=== PATIENT | female | born 1955 | race Caucasian/White ===

== ENCOUNTER 2016-08-13 04:34 | Outpatient (CLI) | payer MEDICAID ==
[~2016-08-13] VITALS: Ht 175.3 cm; Wt 110.9 kg
--- NOTE | ~2016-08-13 | HEMODYNAMI ---
PATIENT:NISHA SABA MEDICAL RECORD: [id number] : 51 [id number] ADMISSION DATE: 08/13/16 Generatedon:08/13/201610:00 Patient name: NISHA SABA Patient #: [id number] : 1955 Date of study: 08/13/2016 Page: Of Hemodynamic Procedure Report Patient Data Patient Demographics Procedure consent was obtained First Name: NISHA Gender: Female Last Name: WANDY : 1955 Middle Initial: GIULIANO Age: 60 year(s) Patient #: [id number] Race: SSN: [id number] Additional ID: [id number] Contact details Address: [address] [place] [address] State: [place] City: [place] Zip code: [address] Past Medical History Allergies: No known allergies Admission Admission Data Admission Date: 08/13/2016 Admission Time: 4:34 Arrival Date: 08/13/2016 Arrival Time: 0:00 Admit Source: Other Insurance Payor: Medicaid Room #: D.2126 Height (in.): 68 BSA: 2.21 (m2) Height (cm.): 172.72 BMI: 36.49 (kg/m2) Weight (lbs.): 240 Weight (kg.): 108.86 Lab Results Lab Result Date: 08/13/2016 Lab Result Time: 0:00 Biochemistry Name Units Result Min Max BUN mg/dl 23 --(----)-* 7 18 Creatinine mg/dl 0.9 --(-*--)-- 0.6 1.3 CBC Name Units Result Min Max Hemoglobin g/dl 13.6 --(*---)-- 13.5 17.5 Procedure Procedure Types Cath Procedure Diagnostic Procedure LHC Coronaries only PCI Procedure Coronary Stent Initial Procedure Description Procedure Date Procedure Date: 08/13/2016 Procedure Start Time: 9:30 Procedure End Time: 9:53 Procedure Staff Name Function Jeff Huynh MD Performing Physician Angela Howell RT Scrub Radha Ortiz RN Nurse Vickie Song RT Monitor Real Chan RN Resident Services Coordinator Procedure Data Cath Procedure Fluoroscopy Diagnostic fluoroscopy Total fluoroscopy Time: 5.4 time: 5.4 min min Diagnostic fluoroscopy Total fluoroscopy dose: dose: 469.11 mGy 469.11 mGy Contrast Material Contrast Material Type Amount (ml) Isovue 370 111 Entry Location Entry Primary Successful Side Size Upsize Upsize Entry Closure Succes sful Closure Location (Fr) 1 (Fr) 2 (Fr) Remarks Device Remarks Femoral Right 5 Fr 6 Fr Exoseal artery Short Estimated blood loss: 5 ml Diagnostic catheters Device Type Used For End Catheter Placement Cordis 5Fr JL 4.0 Left Coronary Catheter (MP) Angiography Cordis 5Fr 3DRC Catheter Right Coronary (MP) Angiography Procedure Complications No complications Procedure Medications Medication Administration Route Dosage Oxygen NC 2 l/min Lidocaine 2% added to field 20 Heparin Flush Bag added to field 2 bags (1000units/500ml NS) 0.9% NaCl I.V. 100 ml/hr Versed I.V. 1 mg Fentanyl I.V. 50 mcg Versed I.V. 1 mg Fentanyl I.V. 50 mcg Heparin Bolus I.V. 4000 units Integrilin (Bolus 10.2 ml 2mg/ml) Fentanyl I.V. 50 mcg Plavix P.O. 600 mg Hemodynamics Rest BSA: 2.21 (m2) HGB: 13.6 (g/dl) O2 Consumption: Estimated: 211.33 (ml/min) O2 Co nsumption indexed: Estimated:95.62 (ml/min/m) Heart Rate: 74 (bpm) Snapshots Pre Cath Intra NCS Post Cath Vital Signs Time Heart Resp SPO2 NIBP (mmHg) Rhythm Pain Sedation Rate (ipm) (%) Status Level (bpm) 9:30:00 78 15 95 127/81(108) NSR 0 (11) 10(A) , No pain 9:35:27 80 15 95 141/81(104) NSR 0 (11) 9(A) , No pain 9:40:59 85 16 96 136/80(113) NSR 0 (11) 9(A) , No pain 9:45:25 83 18 97 157/88(129) NSR 0 (11) 9(A) , No pain 9:50:00 83 17 97 172/84(134) NSR 0 (11) 9(A) , No pain 9:55:21 86 17 96 149/89(126) NSR 0 (11) 10(A) , No pain Medications Time Medication Route Dose Verified Delivered Reason Notes Effectiveness by by 9:15:27 Oxygen NC 2 Jeff Buffie used for l/min [facility] Alphonse Ortiz RN procedure 9:21:32 Lidocaine 2% added 20ml Jeff Jeff for local to vial [facility] anesthetic field MD SUGGS 9:21:39 Heparin Flush added 2 Jeff Jeff used for Bag to bags [facility] procedure (1000units/500ml field MD SUGGS NS) 9:21:48 0.9% NaCl I.V. 100 Jeff Buffie Per physician ml/hr [facility] Alphonse Ortiz RN, MD 9:27:49 Versed I.V. 1 mg Jeff Garcia for sedation [facility] Alph[facility] Ortiz RN, MD 9:27:57 Fentanyl I.V. 50 Jeff Buffie for sedation mcg [facility] Alphonse Ortiz RN, MD 9:32:42 Versed I.V. 1 mg Jeff Castanonie for sedation [facility] Alphonse Ortiz RN, MD 9:32:46 Fentanyl I.V. 50 Jeff Castanonie for sedation mcg [facility] Alphonse Ortiz RN, MD 9:40:04 Heparin Bolus I.V. 4000 Jeff Castanonie for verifie d units [facility] Alphonse Ortiz RN anticoagulation with dr MD sorenson 9:43:01 Integrilin 10.2 Jeff Garcia for (Bolus 2mg/ml) ml [facility] Alphonse Ortiz RN antiplatelet therapy 9:47:54 Fentanyl I.V. 50 Jeff Buffie for sedation mcg [facility] Alphonse Ortiz RN, MD 9:54:04 Plavix P.O. 600 Jeff Castanonie for mg [facility] Alphonse Ortiz RN antiplatelet MD therapy Procedure Log Time Note 8:43:11 Admit Source: Other 8:43:15 Arrival Date: 08/13/2016 12:00:00 AM 8:43:33 Diagnostic Cath Status : Elective 8:52:25 Real Chan RN sent for patient. Start room use. 8:52:31 Time tracking: Regular hours 8:52:36 Plan of Care:Hemodynamics will remain stable., Cardiac rhythm will remain stable., Comfort level will be maintained., Respiratory function will remain adequate., Patient/ family verbilizes understanding of procedure., Procedure tolerated without complication., Recovers from procedure without complications.. 9:04:52 Warm blankets applied, and dwayne hugger turned on for patient comfort. 9:04:55 Correct patient and procedure confirmed by team. 9:05:08 Signed procedure consent form obtained from patient. 9:05:18 H&P Date Dictated: 08/13/2016 H&P Addendum completed by physician on day of procedure. (MUST COMPLETE FOR ALL OUTPATIENTS). 9:05:22 Pre-procedure instructions explained to patient. 9:05:25 Family in waiting room. 9:05:27 Patient NPO since Midnight. 9:05:37 Patient allergic to No known allergies 9:05:53 Patient allergic to No known allergies 9:06:00 Is the patient allergic to Iodine/contrast media? No. 9:06:08 Is patient on blood thinner?No 9:06:10 Patient diabetic? Yes. 9:06:11 If diabetic: On Metformin? Yes 9:06:36 If on Metformin: Last Dose? 08/12/2016 9:06:42 Snore? Yes 9:06:44 Sleep apnea? No 9:06:45 Deviated septum? No 9:06:47 Opens mouth fully? Yes 9:06:49 Sticks out tongue? Yes 9:06:58 Dentures? Yes in tight 9:07:08 Patient pain scale 0/10 ?. 9:07:20 IV patent on arrival in right forearm with 0.9% NaCl at KVO. 9:07:30 Lab results completed and on chart. 9:07:35 Right groin area was prepped with chlora-prep and draped in sterile fashion 9:07:36 Alarms reviewed by R. N. 9:07:38 Sharps counted by scrub and verified by R.N. 9:07:47 Use device set Femoral Dx 9:07:49 Acist Syringe opened to sterile field. 9:07:50 Bag Decanter opened to sterile field. 9:07:50 Cardinal Cath Pack opened to sterile field. 9:07:51 Terumo 5Fr [place] Sheath opened to sterile field. 9:07:53 St Adam 260cm J .035 wire opened to sterile field. 9:07:54 Acist Hand Control opened to sterile field. 9:07:55 Acist Manifold opened to sterile field. 9:07:55 Cordis Infinity 5Fr Multipack catheter opened to sterile field. 9::57 Tegaderm 4 x 4 opened to sterile field. 9:15:27 Oxygen 2 l/min NC was given by Radha Oritz RN; used for procedure; 9:18:32 Patient Height : 172.72 cm 9:18:38 Patient Weight : 108.86 kg 9:18:38 Insurance Payor : Medicaid 9:19:35 Lab Result : BUN 23 mg/dl 9::35 Lab Result : Hemoglobin 13.6 g/dl 9::35 Lab Result : Creatinine 0.9 mg/dl 9::32 Lidocaine 2% 20ml vial added to field was given by Jeff Huynh MD; for local anesthetic; 9:21:39 Heparin Flush Bag (1000units/500ml NS) 2 bags added to field was given by Jeff Huynh MD; used for procedure; 9::48 0.9% NaCl 100 ml/hr I.V. was given by Radha Ortiz RN; Per physician; 9:24:03 Baseline sample Acquired. 9:26:07 Baseline sample Acquired. 9:26:22 Baseline sample Acquired. 9::56 Baseline sample Acquired. 9:27:12 Baseline sample Acquired. 9:27:23 Physician arrived 9:27:24 --------ALL STOP TIME OUT------ 9:27:24 Final Timeout: patient, procedure, and site verified with staff and physician. All members of the team are in agreement. 9:27:26 Right groin site verified by team. 9:27:31 Physical assessment completed. ASA score P 2 - A patient with mild systemic disease as per Jeff Huynh MD. 9:27:34 Sedation plan: IV Moderate Sedation Versed, Fentanyl 9:27:49 Versed 1 mg I.V. was given by Radha Ortiz RN; for sedation; 9::57 Fentanyl 50 mcg I.V. was given by Radha Ortiz RN; for sedation; 9:29:03 Procedure started. 9:29:03 Full Disclosure recording started 9:30:21 Local anesthetic to right femoral artery with Lidocaine 2% by Jeff Huynh MD.INITIAL ACCESS ONLY 9:30:30 A 5 Fr sheath was inserted into the Right Femoral artery 9:32:37 Vital chart was started 9:32:42 Versed 1 mg I.V. was given by Radha Ortiz RN; for sedation; 9:32:46 Fentanyl 50 mcg I.V. was given by Radha Ortiz RN; for sedation; 9:34:44 A Cordis 5Fr JL 4.0 Catheter (MP) was advanced over the wire and used for Left Coronary Angiography. 9:35:17 LCA angiography performed. 9:35:20 Injector settings: Ml/sec: 3, Volume: 6, 9:36:26 Catheter removed. 9:36:31 A Cordis 5Fr 3DRC Catheter (MP) was advanced over the wire and used for Right Coronary Angiography. 9:37:02 Red Balloon Security BasixCompak Inflation Kit opened to sterile field. 9:37:03 [place] Whisper J 300cm 0.014 guide wire opened to sterile field. 9:37:04 Terumo 6Fr [place] Sheath opened to sterile field. 9:37:33 RCA angiography performed. 9:37:37 Injector settings: Ml/sec: 3, Volume: 6, 9:38:14 Cordis 6FR XBLAD 3.5 guide catheter opened to sterile field. 9:38:34 Catheter removed. 9:39:37 Sheath upsized to a 6 Fr Short. 9:40:04 Heparin Bolus 4000 units I.V. was given by Radha Ortiz RN; for anticoagulation; verified with dr sorenson 9:41:31 6 Fr xblad 3.5 guide catheter was inserted over the wire 9:42:51 whisper wire advanced. 9:42:52 Wire advanced across lesion. 9:43:01 Integrilin (Bolus 2mg/ml) 10.2 ml was given by Radha Ortiz RN; for antiplatelet therapy; 9:43:35 Wire removed. 9:43:49 [place] Sci Choice PT Extra Support J 300cm .014 gu opened to sterile field. 9:43:59 choice pt wire advanced. 9:45:03 Inflation number: 1 A [place] Sci Pickett 3.0 X 15 balloon was prepped and advanced across the Prox CX, then inflated to 12 JIMI for 0:30 (min:sec). 9:46:12 Inflation number: 2 The [place] Crowdx Pickett 3.0 X 15 balloon was reinflated across the Prox CX, to 12 JIMI for 0:30 (min:sec). 9:46:29 Balloon removed over the wire. 9:47:54 Fentanyl 50 mcg I.V. was given by Radha Ortiz RN; for sedation; 9:50:06 Inflation Number: 3 A InGameNowtronic Integrity 3.0 X 15 stent was prepped and advanced across the Prox CX. The stent was deployed at 14 JIMI for 0:30 (min:sec). 9:50:16 Stent catheter was removed intact over wire. 9:50:17 Wire removed. 9:50:18 Guide catheter removed. 9:51:20 Cordis 6Fr Exoseal opened to sterile field. 9:51:32 Sheath removed intact; hemostasis achieved with Exoseal to the Right Femoral artery. 9:51:35 Procedure ended.(Physican Out) 9:51:44 Fluoroscopy time 05.40 minutes. 9:52:01 Flurop Dose total: 469.11 9:52:01 Fluoroscopy dose: 469.11 mGy 9:52:04 Contrast amount:Isovue 370 111ml. 9:52:06 Sharps counted by scrub and verified by R.N. 9:52:07 Insertion/operative site no bleeding no hematoma. 9:52:10 Post-op/insertion site Right Femoral artery dressed using a 4 x 4 and Tegaderm. 9:52:13 Post right femoral artery:stable 9:52:14 Post Procedure Pulses reassessed and unchanged 9:52:18 Post procedure rhythm: unchanged. 9:52:21 Estimated blood loss: 5 ml 9:52:22 Post procedure instruction explained to patient.Patient verbalizes understanding. 9:52:23 Patient needs reinforcement of post procedure teaching. 9:52:39 Procedure type changed to Cath procedure, Diagnostic procedure, LHC, Coronaries only, PCI procedure, Coronary Stent Initial 9:52:56 Procedure and supply charges have been captured, reviewed, submitted and are correct. 9:53:01 Procedure Complication : No complications 9:53:14 Vital chart was stopped 9:53:17 See physician's report for complete and final results. 9:53:22 Report given to [facility]. 9:53:25 Patient transfered to [facility] with Stretcher. 9:53:27 Procedure ended. 9:53:27 Full Disclosure recording stopped 9:53:37 ACC-PCI Only Patient was given prescriptions, or instructed by Jeff Huynh MD to start/continue the following medications upon discharge: Plavix 9:53:39 End room use (Document Last) 9:54:04 Plavix 600 mg P.O. was given by Radha Ortiz RN; for antiplatelet therapy; Intervention Summary Intervention Notes Time ActionType Lesion and Equipment Action# Pressure Duration Attributes Used 9:45:03 Inflate Prox CX [place] 1 12 00:30 balloon Sci Pickett 3.0 X 15 balloon 9:46:12 Reinflate Prox CX [place] 2 12 00:30 balloon Sci Pickett 3.0 X 15 balloon 9:50:[address] stent Prox CX Medtronic 3 14 00:30 Integrity 3.0 X 15 stent Device Usage Item Name Manufacture Quantity Catalog Number Hospital Part Current Mini mal Lot# / Charge Number Stock Stock Serial# Code Acist Acist 1 02317 [id number] 146321 982890 20 Syringe Medical Systems Inc Bag Microtek 1 2002S 065506 48030 051058 5 Decanter Medical Inc. Cardinal Cardinal 1 [id number] 742162 51782 305111 5 Cath Pack Health Terumo 5Fr Terumo 1 [id number] 678758 338701 687677 [address] [place] [address] [facility] St Adam 1 932332 681680 174213 904820 30 260cm J .035 wire Acist Hand Acist 1 78311 631248 457431 395047 5 Control Medical Systems Inc Acist Acist 1 73664 421268 854028 867770 5 Manifold Medical Systems Inc Cordis Cardinal 1 [id number] 001519 59582 055729 30 Infinity Health 5Fr Multipack catheter Tegaderm 4 3M 1 1626W 024139 190622 712465 5 x 4 Cordis 5Fr Cardinal 1 581029 5 JL 4.0 Health Catheter (MP) Cordis 5Fr Cardinal 1 569425 5 3DRC Health Catheter (MP) [facility] Merit 1 QR1215 444182 217445 122199 15 BasixCompak Medical Inflation Kit [place] 1 [id number] 882485 236097 817369 5 Whisper J Vascular 300cm 0.014 guide wire Terumo 6Fr Terumo 1 [id number] 464731 834871 642876 40 [place] Sheath Cordis 6FR Cardinal 1 [id number] 398901 224291 920829 10 XBLAD 3.5 Health guide catheter [place] Sci [place] 1 [id number] 841562 176125 887796 5 [id number] Choice PT Scientific Extra Support J 300cm .014 gu [place] Sci [place] 1 [id number] 095987 038813 426087 1 [id number] Pickett Scientific 3.0 X 15 balloon Medtronic Medtronic 1 [id number] 272446 449928 873991 0 [id number] Integrity 3.0 X 15 stent Cordis 6Fr Cardinal 1 [id number] 106327 508154 629077 10 Wikia Health Signature Audit [place] Stage Time Signature Unsigned Intra-Procedure 08/13/2016 Vickie Song 10:00:04 AM RT(R) Signatures Monitor : Vickie Song RT Signature : Date : Time : [place] [id number] [place] [address]
[~2016-08-13 04:34] MED LIST: BAYER CHEWABLE81 MG PO; COREG 3.1253.125 MG PO; EFFIENT10 MG PO; FIBERCON625 MG PO; GABAPENTIN100 MG PO; GLUCOPHAGE500 MG PO; LASIX80 MG PO; POTASSIUM CHLO10 ME1 PO; SYMBICORT 16010.2 GM INH; TESSALON PERLE100 MG PO; TYLENOL W/CODEI1 TAB PO; VENTOLIN HFA18 GM INH
[2016-08-13 04:45] VITALS: BP 151/72
--- NOTE | 2016-08-13 04:45 | NUR ---
RECIEVED TO ROOM 2126 FROM [facility] VIA EMS. PT A&O, VITALS STABLE. PLACED ON TELEMETRY, 84 SR PER LOGISTICIAN. IV TO LEFT AC SL, SITE CLEAN AND DRY. PT EXPRESSED WISHES " THAT IF ANYTHING WERE TO HAPPEN TO HER, SHE DOESNT WANT ANY THING DONE, NO COMPRESSIONS OR SHOCKS" ASKED PT IF SHE WANTS TO BE A DNR, PT STATED YES. PLACED DNR SHEET ON PTS CHART AND WILL PASS ON PTS WISHES TO ON COMING NURSING STAFF.
[2016-08-13] MEDS ORDERED: TYLENOL #4 W/CO1 TAB PO (04:47)
[2016-08-13] MEDS ORDERED: KLONOPIN1 MG PO (04:52)
[2016-08-13] MEDS ORDERED: GLUCOPHAGE500 MG PO (04:52)
--- NOTE | 2016-08-13 05:05 | NUR ---
CONSENTS SIGNED AND WITNESSED FOR CATH PROCEDURE, CONSENTS PLACED ON CHART.
[2016-08-13 05:12] VITALS: Ht 175.3 cm; Wt 110.9 kg
--- NOTE | 2016-08-13 05:31 | NUR ---
CALL LIGHT IN REACH. WILL CONTINUE WITH PLAN OF CARE.
--- NOTE | 2016-08-13 07:15 | NUR ---
PT SLEEPING NO S/S DISTRESS FAMILY AT BEDSIDE. WILL CONTINUE TO MONITOR.
[2016-08-13 08:00] VITALS: BP 123/52
--- NOTE | 2016-08-13 10:17 | NUR ---
PT BACK FROM [facility] VS WNL. PT STILL SLEEPY PT FAMILY IN ROOM. GOVIND FROM [employer]WORK [employer] SAT PT UP SLIGHTLY ABOUT 20 DEGREES BECAUSE PT HAS BACK/BREATHING PROBLEMS. PT R PRIYA SITE WNL. WILL CONTINUE TO MONITOR CLOSELY.
[2016-08-13 11:01] LABS: BASOPHILS 0.1 % (0.0-2.0); EOSINOPHILS 0.5 % (0-7); HEMOGLOBIN 12.7 g/dL (12-16); IMMATURE GRANULOCYTES 0.6 % (0-5); LYMPHOCYTES 26.5 % (15-50); MCH 30.4 pg (26.0-34.0); MCHC 31.8 g/dL (31.0-37.0); MCV 95.7 fL (80.0-100.0); MEAN PLATELET VOLUME 11.6 fL (7.4-10.4); MONOCYTES 6.1 % (2-11); NEUTROPHILS 66.2 % (40-80); RBC 4.18 10x6/uL (4.00-5.40); RDW 16.7 % (11.5-14.5); WBC 11.2 10x3/uL (4.8-10.8)
[2016-08-13 11:02] LABS: PLATELET COUNT 218 10x3/uL (130-400)
[2016-08-13 11:09] LABS: CALC OSMOLALITY 284 mosm/kg (275-300); CALCIUM 9.3 mg/dL (8.5-10.1); CARBON DIOXIDE 32.5 mmol/L (21.0-32.0); CHLORIDE - SERUM 104 mmol/L (98-107); CREATININE - SERUM 0.8 mg/dL (0.6-1.3); GLUCOSE 81 mg/dL (74-106); POTASSIUM - SERUM 3.9 mmol/L (3.5-5.1); SODIUM 142 mmol/L (136-145); UREA NITROGEN 20 mg/dL (7-18); eGFR NON AFRICAN AMERICAN 77 mL/min (90-120)
[2016-08-13 12:00] VITALS: BP 109/62
[2016-08-13] MEDS ORDERED: PLAVIX75 MG PO (12:27)
[2016-08-13] MEDS ORDERED: ISOSORBIDE MONO30 M1 PO (12:27)
--- NOTE | 2016-08-13 14:17 | NUR ---
WENT OVER DC PAPERWORK WITH PT PT VERBALIZED UNDERSTANDING. DC TELE. PT SKIN TEARS VERY EASILY WHEN DC PIV PT RIPPED TAPE OFF OF AND RIPPED SKIN OFF ARM. PIV WAS REMOVED WITH CATHETER TIP INTACT. WRAPED WOUND WITH VASELINE GAUZE, 4X4, CURLEX. PT GOT DRESSED AND VOLUNTEER WHEELED PT OUT.
--- NOTE | 2016-08-16 14:09 | OP ---
PATIENT NAME: NISHA SABA MEDICAL RECORD: [id number] :51 LOCATION:D.OPS ADMISSION DATE: SURGEON: JEROME CHAVEZ MD DATE OF OPERATION: 08/13/2016 PROCEDURE: Left heart catheterization, selective coronary angiography, right femoral artery approach. CATHETERS: A 5-British sheath, 5/4 left and right Alem, 5/4 pig. The procedure was well tolerated ____ of the ostial circumflex after the procedure was finished. FINDINGS: Left ventriculography not performed. CORONARY ANATOMY: Left main: Left main is free of disease. LAD: Free of disease in the diagonal system. CIRCUMFLEX: Circumflex has an ostial stenosis of better than 90%. RIGHT CORONARY ARTERY: Has a 90% stenosis. Attempted intervention of this vessel previously by Dr. Cantu, did not ____ despite 7-British sheath, etc was not able to be crossed. IMPRESSION: Known disease of the right. PLAN: Intervention of ostial circumflex. PROCEDURE IN DETAIL: A 5-British sheath was exchanged for a 6-British sheath. An XB LAD guiding catheter provided good guide support followed by a 300 cm Whisper wire was placed across the tightly occluded ostial circumflex down this portion of vessel. Next, a 3.0 x 15 Integrity balloon was taken down this part of the circumflex and the wire was changed for a PT export wire. Next, the balloon withdrawn proximally. Predeployment up to 12 atmospheres for 45 seconds. Next, stent deployed was a 3.0 x 15 mm Integrity nondrug-eluting stent, was inflated up to 14 atmospheres. Final injection shows excellent resolution of 90% stenosis to no significant residual. OMAR flow was 3 throughout the procedure. Plavix was loaded in the lab. Integrilin and heparin were used during the case. Sheath closed with ExoSeal device. TRANSINT:[id number] Voice Confirmation ID: [id number] DOCUMENT ID: [id number] JEROME CHAVEZ MD at 1409 CC: [id number] DICTATION DATE: 08/13/16 0957 RUST PROOFER: 08/13/16 1240 DEP CLI 08/13/16 [place] [address]
== END 2016-08-13 14:21 | disposition home or self-care (01) ==
LOC: D.M2 04:34 → D.OPS 04:34 → D.M2 04:34 → UNDOADMOB 04:34 → EDSTATUS 13:45 → D.OPS 14:21
PROVIDERS: Internal Medicine Interventional Cardiology
DX: I25.119 Atherosclerotic heart disease of native coronary artery with unspecified angina pectoris (principal)

== ENCOUNTER 2016-09-12 17:41 | Inpatient (IN) | payer MEDICAID ==
[~2016-09-12] VITALS: Ht 175.3 cm; Wt 109.7 kg
--- NOTE | ~2016-09-12 | HEMODYNAMI ---
PATIENT:NISHA SABA MEDICAL RECORD: [id number] : 51 [facility]. D.[id number] ADMISSION DATE: 09/12/16 Generatedon:09/13/201613:39 Patient name: NISHA SABA Patient #: [id number] : 1955 Date of study: 09/13/2016 Page: Of Hemodynamic Procedure Report Patient Data Patient Demographics Procedure consent was obtained First Name: NISHA Gender: Female Last Name: WANDY : 1955 [facility] Initial: GIULIANO Age: 60 year(s) Patient #: [id number] Race: SSN: [id number] Additional ID: [id number] Contact details Address: [address] [place] [address] State: [place] City: [place] Zip code: [address] Past Medical History Allergies: No known allergies Admission Admission Data Admission Date: 09/12/2016 Admission Time: 20:04 Arrival Date: 09/13/2016 Arrival Time: 0:00 Admit Source: Other Room #: D.2121 Height (in.): 68 BSA: 2.21 (m2) Height (cm.): 172.72 BMI: 36.49 (kg/m2) Weight (lbs.): 240 Weight (kg.): 108.86 Lab Results Lab Result Date: 09/13/2016 Lab Result Time: 0:00 Biochemistry Name Units Result Min Max BUN mg/dl 25 --(----)-* 7 18 Creatinine mg/dl 1 --(--*-)-- 0.6 1.3 CBC Name Units Result Min Max Hemoglobin g/dl 13.4 -*(----)-- 13.5 17.5 Procedure Procedure Types Cath Procedure Diagnostic Procedure LHC LHC w/Coronaries Miscellaneous Procedures Moderate Sedation up to 15 minutes Procedure Description Procedure Date Procedure Date: 09/13/2016 Procedure Start Time: 13:24 Procedure End Time: 13:37 Procedure Staff Name Function Jeff Huynh MD Performing Physician Angela Howell RT Scrub Angela Barreto RN Nurse Ruben Del Angel RT Director Regulatory Affairs Angela Howell RT Monitor Procedure Data Cath Procedure Fluoroscopy Diagnostic fluoroscopy Total fluoroscopy Time: 1.3 time: 1.3 min min Diagnostic fluoroscopy Total fluoroscopy dose: 162 dose: 162 mGy mGy Contrast Material Contrast Material Type Amount (ml) Isovue 300 57 Entry Location Entry Primary Successful Side Size Upsize Upsize Entry Closure Succes sful Closure Location (Fr) 1 (Fr) 2 (Fr) Remarks Device Remarks Femoral Left 5 Fr Exoseal artery Estimated blood loss: 10 ml Diagnostic catheters Device Type Used For End Catheter Placement Cordis 5Fr JL 4.0 Procedure Catheter (MP) Cordis 5Fr 3DRC Catheter Procedure (MP) Cordis 5Fr Pigtail Ventriculography Catheter (MP) Procedure Complications No complications Procedure Medications Medication Administration Route Dosage Oxygen NC 2 l/min Heparin Flush Bag added to field 2 bags (1000units/500ml NS) Lidocaine 2% added to field 20 Versed I.V. 1 mg Fentanyl I.V. 50 mcg Versed I.V. 0.5 mg Fentanyl I.V. 25 mcg Hemodynamics Rest BSA: 2.21 (m2) HGB: 13.4 (g/dl) O2 Consumption: Estimated: 207.59 (ml/min) O2 Co nsumption indexed: Estimated:93.93 (ml/min/m) Heart Rate: 69 (bpm) Pressure Samples Time Site Value (mmHg) Purpose Heart Use Rate(bpm) 13:32 LV 157/17,18 Snapshot 81 13:33 AO (97) Pullback 88 13:33 LV 149/14,15 Pullback 88 Gradients Valve Time Site 1 Site Mean SEP/DFP Peak To Heart Use 2 (mmHg) (sec/min) Peak Rate (mmHg) (bpm) Aortic 13:33 LV AO 4 18 88 149/14,15 (97) Calculations Valve P-P Mean Valve Index Valve Source Name Gradient Area Flow (cm2) Aortic 4 4 Snapshots Pre Cath Intra NCS Post Cath Vital Signs Time Heart Resp SPO2 NIBP (mmHg) Rhythm Pain Sedation Rate (ipm) (%) Status Level (bpm) 13:15:36 65 19 98 150/79(126) NSR 0 (11) 10(A) , No pain 13:20:02 66 18 98 142/83(115) NSR 0 (11) 10(A) , No pain 13:25:01 79 15 98 Measuring NSR 0 (11) 9(A) , No pain 13:25:12 78 16 98 136/79(113) NSR 0 (11) 9(A) , No pain 13:29:34 84 16 98 138/86(117) NSR 0 (11) 9(A) , No pain 13:33:54 77 16 97 134/76(117) NSR 0 (11) 9(A) , No pain 13:37:12 79 18 97 140/81(111) NSR 0 (11) 9(A) , No pain Medications Time Medication Route Dose Verified Delivered Reason Notes Effec tiveness by by 13:16:37 Oxygen NC 2 Jeff Angela Per l/min [facility] Alphonse Barreto RN physician 13:16:43 Heparin Flush added 2 Jeff Jeff [facility] (1000units/500ml field MD SUGGS NS) 13:16:49 Lidocaine 2% added 20ml Jeff Jeff used for to vial Lino Helemano procedure field MD SUGGS 13:18:59 Versed I.V. 1 mg [address] Angela [address] [facility] Alphonse Barreto RN sedation 13:19:05 Fentanyl I.V. 50 Jeff Angela for mcg [facility] Alphonse Barreto RN sedation 13:21:43 Versed I.V. 0.5 Jeff Angela for mg [facility] Alphonse Barreto RN sedation 13:21:52 Fentanyl I.V. 25 Jeff Angela for mcg [facility] Alphonse Barreto RN sedation Procedure Log Time Note 12:54:32 Admit Source: Other 12:54:36 Arrival Date: 09/13/2016 12:00:00 AM 12:57:11 Patient Height : 172.72 inches 12:57:19 Patient Weight : 108.86 lbs 12:57:30 Diagnostic Cath Status : Elective 12:58:21 Ruben KANG(R) sent for patient. Start room use. 12:58:32 Time tracking: Regular hours 12:58:38 Plan of Care:Hemodynamics will remain stable., Cardiac rhythm will remain stable., Comfort level will be maintained., Respiratory function will remain adequate., Patient/ family verbilizes understanding of procedure., Procedure tolerated without complication., Recovers from procedure without complications.. 12:58:49 Patient received from Med II to CCL 3 Alert and oriented. Tansferred to table in Supine position. 12:59:05 H&P Date Dictated: 09/13/2016 Within 30 days and on chart.. 12:59:08 Pre-procedure instructions explained to patient. 12:59:11 Family in waiting room. 12:59:13 Patient NPO since Midnight. 12:59:21 Patient allergic to No known allergies 12:59:24 Is the patient allergic to Iodine/contrast media? No. 12:59:27 Was the patient premedicated? No 12:59:29 Is patient on blood thinner?Yes 12:59:34 ACC The patient was administered the following blood thiners within the last 24 hours: ACCPlavix 12:59:36 Patient diabetic? Yes. 12:59:38 If diabetic: On Metformin? Yes 12:59:42 If on Metformin: Last Dose? 09/12/2016 12:59:49 Snore? Yes 12:59:50 Sleep apnea? Yes 12:59:52 Deviated septum? No 12:59:52 Opens mouth fully? Yes 12:59:54 Sticks out tongue? Yes 13:00:00 Dentures? Yes tight 13:00:10 IV patent on arrival in left forearm with 0.9% NaCl at KVO. 13:00:19 Lab results completed and on chart. 13:00:36 Right groin area was prepped with chlora-prep and draped in sterile fashion 13:00:56 Warm blankets applied, and dwayne hugger turned on for patient comfort. 13:00:57 Correct patient and procedure confirmed by team. 13:00:59 Signed procedure consent form obtained from patient. 13:01:39 Procedure type changed to Cath procedure, Diagnostic procedure, LHC, LHC w/Coronaries, Miscellaneous Procedures, Moderate Sedation up to 15 minutes 13:14:16 Vital chart was started 13:16:37 Oxygen 2 l/min NC was given by Angela Barreto RN; Per physician; 13:16:43 Heparin Flush Bag (1000units/500ml NS) 2 bags added to field was given by Jeff Huynh MD; used for procedure; 13:16:49 Lidocaine 2% 20ml vial added to field was given by Jeff Huynh MD; used for procedure; 13:16:57 ECG and BP/O2 sat monitors applied to patient. 13:17:00 Baseline sample Acquired. 13:17:06 Full Disclosure recording started 13:18:15 Airway obstruction? Yes COPD, ASTHMA 13:18:30 Alarms reviewed by R. N. 13:18:31 Sharps counted by scrub and verified by R.N. 13:18:32 Physician paged 13:18:33 Physician arrived 13:18:33 --------ALL STOP TIME OUT------ 13:18:34 Final Timeout: patient, procedure, and site verified with staff and physician. All members of the team are in agreement. 13:18:37 Right Radial & Left Groin site verified by team. 13:18:42 Sedation plan: IV Moderate Sedation Versed, Fentanyl 13:18:54 Use device set Femoral Dx 13:18:56 Acist Syringe opened to sterile field. 13:18:56 Bag Decanter opened to sterile field. 13:18:57 Cardinal Cath Pack opened to sterile field. 13:18:57 Terumo 5Fr [place] Sheath opened to sterile field. 13:18:58 St Adam 260cm J .035 wire opened to sterile field. 13:18:59 Versed 1 mg I.V. was given by Angela Barreto RN; for sedation; 13:19:00 Acist Hand Control opened to sterile field. 13:19:00 Acist Manifold opened to sterile field. 13:19:01 Cordis Infinity 5Fr Multipack catheter opened to sterile field. 13:19:02 Tegaderm 4 x 4 opened to sterile field. 13:19:05 Fentanyl 50 mcg I.V. was given by Angela Barreto RN; for sedation; 13:20:38 Lab Result : BUN 25 mg/dl 13:20:38 Lab Result : Creatinine 1 mg/dl 13:20:38 Lab Result : Hemoglobin 13.4 g/dl 13:21:43 Versed 0.5 mg I.V. was given by Angela Barreto RN; for sedation; 13:21:52 Fentanyl 25 mcg I.V. was given by Angela Barreto RN; for sedation; 13:24:27 Procedure started. 13:24:45 Local anesthetic to left femerol artery with Lidocaine 2% by Jeff Huynh MD.INITIAL ACCESS ONLY 13:26:00 A 5 Fr sheath was inserted into the Left Femoral artery 13:26:43 Zero performed for pressure channel P1 13:27:22 A Cordis 5Fr JL 4.0 Catheter (MP) was advanced over the wire and used for Procedure. 13:29:37 LCA angiography performed. 13:30:45 Catheter removed. 13:31:22 A Cordis 5Fr 3DRC Catheter (MP) was advanced over the wire and used for Procedure. 13:31:26 Catheter removed. 13:32:04 A Cordis 5Fr Pigtail Catheter (MP) was advanced over the wire and used for Ventriculography. 13:33:25 Cordis 5Fr Exoseal opened to sterile field. 13:34:30 Sheath removed intact; hemostasis achieved with Exoseal to the Left Femoral artery. 13:34:33 Procedure ended.(Physican Out) 13:34:48 Fluoroscopy time 01.30 minutes. 13:34:55 Flurop Dose total: 162 13:34:55 Fluoroscopy dose: 162 mGy 13:35:45 Contrast amount:Isovue 300 57ml. 13:35:47 Sharps counted by scrub and verified by R.N. 13:35:58 Post left femerol artery:stable 13:36:13 Post-procedure physical assessment completed. ASA score P 2 - A patient with mild systemic disease as per Jeff Huynh MD. 13:36:16 Post procedure rhythm: unchanged. 13:36:19 Estimated blood loss: 10 ml 13:36:21 Post procedure instruction explained to patient.Patient verbalizes understanding. 13:36:30 Procedure and supply charges have been captured, reviewed, submitted and are correct. 13:36:54 Procedure Complication : No complications 13:36:57 Vital chart was stopped 13:36:58 See physician's report for complete and final results. 13:37:06 Report given to [facility]. 13:37:11 Patient transfered to [facility] with Bed. 13:37:15 Procedure ended. 13:37:15 Full Disclosure recording stopped 13:37:23 End room use (Document Last) Device Usage Item Name Manufacture Quantity Catalog Hospital Part Current Minimal Lo t# / Number Charge Number Stock Stock Serial# Code Acist Acist 1 82479 [id number] [id number] 115920 20 Syringe Medical Systems Inc Bag Microtek 1 2002S [id number] 03067 055520 5 Decanter Medical Inc. Cardinal Cardinal 1 [id number] 13035 230414 5 Cath Pack Health Terumo Terumo 1 [id number] 375262 872207 544239 [address] St Adam 1 456238 144399 379513 407616 30 260cm J .035 wire Acist Acist 1 19978 519327 173637 084076 5 Hand Medical Control Systems Inc Acist Acist 1 87745 469769 995986 603882 5 Manifold Medical Systems Inc Cordis Cardinal 1 [id number] 833598 10548 366266 30 [employer] 5Fr Multipack catheter Tegaderm 3M 1 1626W 646201 655935 825943 5 4 x 4 Cordis Cardinal 1 563010 5 5Fr JL Health 4.0 Catheter (MP) Cordis Cardinal 1 [id number] 5 5Fr [facility] Health Catheter (MP) Cordis Cardinal 1 314635 5 5Fr Health Pigtail Catheter (MP) Cordis Cardinal 1 EX500 289574 101852 062784 10 5Fr Health Exoseal Signature Audit [place] Stage Time Signature Unsigned Intra-Procedure 09/13/2016 Angela Howell 1:39:51 PM RT(R) Signatures Monitor : Angela Howell Signature : RT Date : Time : [address] [place] [address]
[~2016-09-12 17:41] MED LIST changes: +ISOSORBIDE MONO30 M1 PO; +KLONOPIN1 MG PO; +PLAVIX75 MG PO; +TYLENOL #4 W/CO1 TAB PO
[2016-09-12 20:00] VITALS: BP 118/63
--- NOTE | 2016-09-12 20:23 | NUR ---
PT ARIVED VIA STRETCHER FROM [facility]. PT NAD. DRESSING TO BILAT ARMS OOZING BLOOD. SORE TO LOWER L LEG WEEPING SEROUS FLUID. DRESSING CHAGES TO BILAT ARMS DONE WITH 4X4'S AND KERLIX. L OUTER AC SORE OOZING BLOOD. R AC AREA SKIN TEAR APPROX 1CM BLEEDING. APPROX 3CM X1 CM SORE TO LOWER L LEG WEEPING SEROUS FLUID. ABD PAD AND KERLIX APPLIED TO AREA. CM DENOTES SR WITH PAC'S PER CM HR 88. FAMIL AT BEDSIDE. SR UP X2, CALL LIGHT WITHIN REACH.
[2016-09-12 20:35] VITALS: BP 118/63; Ht 175.3 cm; Wt 109.7 kg
[2016-09-12] MEDS ORDERED: GABAPENTIN100 MG PO ×2 (21:04→21:05)
--- NOTE | 2016-09-12 22:19 | NUR ---
ADMISSIN ASSESSMENT, HISTORY AND HOME MED LIST COMPLETED BY 2100 HRS. PT DENIES ANY DISCOMFORT. DR CHAVEZ NOTIFIED AT 2200 RS OF PT'S ARRIVAL, VS. CARDIAC RHTYM, OOZING SKIN TEARS AND MEDS. NEW ORDERS REEIVED AND NOTED.
--- NOTE | 2016-09-12 23:10 | NUR ---
PM MEDS GIVEN. O2 2LNC PLACED. PT DENIES ANY DISCOMFORT. WILL CONTINUE TO MONITOR.
[2016-09-13] VITALS (10 sets, daily range): BP systolic 103–173; BP diastolic 44–89
--- NOTE | 2016-09-13 00:53 | NUR ---
SR WITH FREQ PAC'S PER CM HR 90. PT RESTING WITH EYES CLOSED. RESP EVEN AND REGULAR. SR UP X2, CALL LIGHT WITHNIN REACH.
--- NOTE | 2016-09-13 02:12 | NUR ---
PT RESTING WITH EYES CLOSED. RESP EVEN AND REGULAR. CM DENOTES SR WITH FREQ PAC'S. FAMIILY AT BEDSIDE. WILL CONTIUE TO MONITOR. SR UP X2, CALL LIGHT WITHIN REACH.
--- NOTE | 2016-09-13 04:54 | NUR ---
PT RESTING WITH EYES CLOSED. RESP EVEN AND REGULAR. SR UP X2, CALL LIGHT WITHIN REACH.
[2016-09-13 06:14] LABS: BASOPHILS 0.1 % (0.0-2.0); EOSINOPHILS 0.5 % (0-7); HEMOGLOBIN 13.4 g/dL (12-16); IMMATURE GRANULOCYTES 0.7 % (0-5); MCH 29.8 pg (26.0-34.0); MCHC 31.9 g/dL (31.0-37.0); MCV 93.5 fL (80.0-100.0); MEAN PLATELET VOLUME 10.9 fL (7.4-10.4); MONOCYTES 5.6 % (2-11); NEUTROPHILS 69.1 % (40-80); RBC 4.49 10x6/uL (4.00-5.40); RDW 15.3 % (11.5-14.5); WBC 11.8 10x3/uL (4.8-10.8)
[2016-09-13 06:21] LABS: APTT 24.8 SECONDS (22.8-39.4); INR 0.94 (0.85-1.17); PROTIME 12.4 SECONDS (11.6-15.0)
--- NOTE | 2016-09-13 06:28 | NUR ---
VSS THROUGHOUT NIGHT., SR WITH FREQ PAC'S PER CM. PT DENIED ANY DISCOMFORT. NEEDS MET; WILL CONTINUE TO MONITOR.
[2016-09-13 06:29] LABS: PLATELET COUNT 271 10x3/uL (130-400)
[2016-09-13 06:53] LABS: ANION GAP 9.6 mmol/L (8-16); CARBON DIOXIDE 35.1 mmol/L (21.0-32.0); POTASSIUM - SERUM 3.7 mmol/L (3.5-5.1)
[2016-09-13 07:24] LABS: TROPONIN-I 0.533 ng/mL (0.000-0.060)
--- NOTE | 2016-09-13 07:30 | NUR ---
RECEIVED PT AAOX4 RESP UNLABORED DENIES ANY NEEDS OR DISCOMFORT AT THIS TIME
[2016-09-13 08:50] LABS: CHOL - HDL RATIO 3.5 ratio (2.3-4.1); LDL-HDL RATIO 1.6 ratio (1.5-3.5)
[2016-09-13] MEDS ORDERED: BUMEX 1 MG TAB1 MG PO (09:52)
[2016-09-13] MEDS ORDERED: IPRAT-ALBUT 0.5-3 ML UPD (09:53)
--- NOTE | 2016-09-13 12:01 | NUR ---
Patient Name: NISHA SABA Admission Status: Elective Accout number: [id number] Admission Date: 09-12-2016 : 1955 Admission Diagnosis: Attending: JAYDE Current LOS: 1 Anticipated DC Date: Planned Disposition: Home Primary Insurance: MEDICAID [place] Discharge Planning Comments: * Is the patient Alert and Oriented? Yes 0 * How many steps to enter\exit or inside your home? NONE 0 * PCP [facility] 0 * Pharmacy [facility] * Preadmission Environment Home with Family 0 * ADLs Independent 0 * Equipment Nebulizer Oxygen 0 * Other Equipment OXYGEN AT NIGHT ONLY [facility] - MEDICAL EQUIPMENT PROVIDER 0 * List name and contact numbers for known caregivers / representatives who currently or will assist patient after discharge: TRINITY CERNA, DAUGHTER, 0 * Community resources currently utilized None 0 * Please name any agencies selected above. NONE 0 * Additional services required to return to the preadmission environment? No 0 * Can the patient safely return to the preadmission environment? Yes 0 * Has this patient been hospitalized within the prior 30 days at any hospital? Yes 0 CM MET WITH PT AND DAUGHTER IN ROOM TO DISCUSS DISCHARGE PLANNING AND NEEDS. PT REPORTS LIVING AT HOME INDEPENDENTLY WITH HER ADULT DAUGHTER AND FAMILY. PT HAS HOME OXYGEN THAT SHE USES AT NIGHT WHEN SHE REMEMBERS TO US IT AND A NEBLIZER FROM [facility]. PT HAS NO OUTSIDE SERVICES ASSISTING IN THE HOME. PT REPORTS HAVING FAMILY PRESENT IF SHE NEEDS ANY ASSISTANCE AT HOME. CM DISCUSSED AVAILABILITY OF HOME HEALTH, REHAB SERVICES AND MEDICAL EQUIPMENT. PT REPORTS BIGGEST PROBLEM IS GETTING ONLY SIX MEDICATION SLOTS AND AFTER EVERY HOSPITAL STAY, SHE HAS TO WORK WITH THE PHARMACY TO GET HER MEDICATIONS. PT DENIES DISCHARGE NEEDS, REPORTS HER DAUGHTER WILL PICK HER UP FOR DISCHARGE HOME. Manager Regional Sales: Barry Becker
[2016-09-13] MEDS ORDERED: CORDARONE200 MG PO (14:19)
--- NOTE | 2016-09-13 17:20 | NUR ---
REVIEWED DEISCHARGE INSTRUCTIONS WITH PT AND FAMILY STATE UNDERSTANDING COPY GIVEN TO PT SALINE LOCK TO LAC WITH 20 GA IV CATH INTACT NO REDNESS OR EDEMA AT SITE PT DISCHARGED HOME IN STABLE CONDITION WITH ALLPERSONAL BELONGINGS LEFT UNIT VAI W/C
--- NOTE | 2016-09-14 13:41 | OP ---
PATIENT NAME: NISHA SABA MEDICAL RECORD: [id number] :[birth year] LOCATION:D.M2 D.2121 ADMISSION DATE:09/12/16 SURGEON: JEROME CHAVEZ MD DATE OF OPERATION: 09/13/2016 PROCEDURE: Left heart catheterization, selective coronary angiography, left femoral approach. CATHETERS: A 5-Indonesian sheath, 5/4 left and right Alem, 5/4 pig. The procedure was well tolerated. The patient returned to miller, sheath was removed. ExoSeal device. FINDINGS: Left ventriculography in the 30-degree IBARRA view: Normal wall motion, normal systolic function.. CORONARY ANATOMY: Left main: Left main is free of disease. LAD: Free of disease in the diagonal system. CIRCUMFLEX: Area of previous stenting is widely patent. RIGHT CORONARY ARTERY: This is a smallest right and has previously seen a known 80% stenosis, not amenable to intervention, but again smallest vessel. IMPRESSION: Suspect the elevated troponin is secondary to atrial fibrillation. We will plan easily controlled with medications. TRANSINT:[id number] Voice Confirmation ID: [id number] DOCUMENT ID: [id number] JEROME CHAVEZ MD at 1341 CC: [id number] DICTATION DATE: 09/13/16 1339 INSIDE POLISHER: 09/13/16 1440 DIS IN 09/13/16 [address] [place] [address]
--- NOTE | 2016-09-14 13:41 | CN ---
PATIENT NAME:NISHA SABA MEDICAL RECORD: [id number] : [birth year] LOCATION:D. D.2121 ADMIT DATE: 09/12/16 ACCOUNT: [id number] CONSULTING PHYSICIAN: JEROME CHAVEZ MD REFERRING PHYSICIAN: JEROME CHAVEZ MD DATE OF CONSULTATION: 09/13/2016 HISTORY OF PRESENT ILLNESS: A 60-year-old female with a known history of coronary artery disease. She has a history of cardiomyopathy. More recently, she had intervention of the ostial circumflex. She has a known residual right that is unable to be crossed, managed medically and yesterday, brought with chest tightness and pressure, found to be in atrial fibrillation with RVR. She has no history of atrial fibrillation in the past. She has converted nicely on oral medications. She was transferred here for further evaluation. PAST MEDICAL HISTORY: Includes: 1. History of coronary artery disease. 2. Diabetes mellitus. 3. Obstructive pulmonary disease. 4. Peripheral neuropathy. MEDICATIONS: Include Plavix 75 p.o. daily, Coreg 3.125 daily, Imdur 30 daily, aspirin 81 mg daily, Neurontin 100 t.i.d., Lasix 80 daily, potassium supplementation, Symbicort 1 daily, Glucophage 500 b.i.d. ALLERGIES: None known. SOCIAL HISTORY: Lives in [place]. She, unfortunately, continues to smoke. Nondrinker, is able to take care of most of her ADLs. REVIEW OF SYSTEMS: The patient reports easy bruising but reports no swollen glands. The patient reports no fever, no night sweats, no significant weight gain, no significant weight loss. No significant exercise tolerance. The patient reports no dry eyes, no irritation, no vision change. Patient reports no difficulty hearing and no ear pain. Patient reports no frequent nose bleeds or nose and sinus problems. Patient reports on arm pain on exertion. No shortness of breath while lying down. No history of heart murmur. Patient reports no cough, no wheezing or coughing up blood. Patient reports no abdominal pain, no vomiting. Normal appetite. No diarrhea and not vomiting blood. No nausea and no constipation. Patient reports no incontinence. No difficulty urinating. No hematuria. No increased frequency. Patient reports no muscle aches. No weakness, no arthralgias, no back pain. No swelling of the extremities. Patient reports no abnormal mole, no jaundice, no rashes. Reports no loss of consciousness. No weakness and no numbness. No seizures, dizziness, or headaches. The patient reports no depression, no sleep disturbance, feeling safe in a relationship and no alcohol abuse. Patient reports on fatigue. Reports no runny nose or sinus pressure. No itching, no hives, and no frequent sneezing. PHYSICAL EXAMINATION: GENERAL: Pleasant female, in no acute distress. VITAL SIGNS: Blood pressure 135/82, pulse 69 and regular. HEENT: Normocephalic, atraumatic. NECK: No JVD or bruit. HEART: Regular. CONSULT REPORT [id number] NISHA SABA LUNGS: Vilch[place] clear. ABDOMEN: Soft, nontender. EXTREMITIES: Pulses 2+. There is no edema. DIAGNOSTIC DATA: ECG shows atrial fibrillation in [place], currently in normal sinus rhythm with PACs. IMPRESSION: Maybe demand ischemia from atrial fibrillation and residual right; however, given recent stent, we will plan angiography to assess patency of previously placed stents. TRANSINT:[id number] Voice Confirmation ID: [id number] DOCUMENT ID: [id number] JEROME CHAVEZ MD at 1341 CC: [id number] DICTATION DATE: 09/13/16 0841 RN CARE MANAGER: 09/13/16 1008 DIS IN 09/13/16 [address] [place] [address]
--- NOTE | 2016-10-28 14:36 | DS ---
PATIENT:NISHA SABA :[birth year] MEDICAL RECORD: [id number] DISCHARGE SUMMARY ADMISSION DATE: 09/12/16 DISCHARGE DATE: 09/13/16 DISCHARGE DIAGNOSES: 1. Acute coronary syndrome secondary to atrial fibrillation. 2. Coronary artery disease status post intervention. 3. Hypertension. 4. Hyperlipidemia. 5. Obstructive pulmonary disease. BRIEF HISTORY AND HOSPITAL COURSE: A 61-year-old lady transferred from [place] with acute coronary syndrome. She was in atrial fibrillation with RVR at [place]; however, converted medications. Angiography showed no restenosis. No progression of [place] disease. She was discharged home in good condition. DIET: AHA diet. ACTIVITY: As tolerated, FOLLOWUP: Smoking cessation was recommended. She will be seen back in followup for her scheduled followup. TRANSINT:[id number] Voice Confirmation ID: [id number] DOCUMENT ID: [id number] JEROME CHAVEZ MD at 1436 CC: [id number] DICTATION DATE: 10/26/161421 CORE INSERTER: 10/27/16 0334 DIS IN 09/13/16 [facility] [address] [place] [address]
== END 2016-09-13 17:10 | disposition home or self-care (01) | DRG 287 ==
LOC: D.MS 17:41 → D.M2 20:04
PROVIDERS: ADMIT Internal Medicine Interventional Cardiology
PROC: 4A023N7 Measurement of Cardiac Sampling and Pressure, Left Heart, Percutaneous Approach (ICD-10-PCS; 2016-09-13)
PROC: B2111ZZ Fluoroscopy of Multiple Coronary Arteries using Low Osmolar Contrast (ICD-10-PCS; principal; 2016-09-13 08:45)
DX: I48.91 Unspecified atrial fibrillation (principal); I42.9 Cardiomyopathy, unspecified; I25.10 Atherosclerotic heart disease of native coronary artery without angina pectoris; Z95.5 Presence of coronary angioplasty implant and graft; E11.40 Type 2 diabetes mellitus with diabetic neuropathy, unspecified; J44.9 Chronic obstructive pulmonary disease, unspecified; Z72.0 Tobacco use

== ENCOUNTER → 2017-10-27 17:34 | Outpatient (CLI) | payer BC ==
[2016-09-12 20:35] VITALS: BMI 35.7
[~2017-10-27 17:34] MED LIST changes: +BUMEX 1 MG TAB1 MG PO; +BUSPAR 15 MG TA15 MG PO; +CORDARONE200 MG PO; +IPRAT-ALBUT 0.5-3 ML UPD; +MACRODANTIN50 MG PO; +METOLAZONE2.5 MG PO; +PROBIOTIC250 MG PO; +PROTONIX40 MG PO; +ULTRAM50 MG PO; +ZINC50 MG PO
[2017-10-27 19:37] LABS: ALBUMIN 2.1 g/dL (3.4-5.0); BILIRUBIN - TOTAL 0.26 mg/dL (0.2-1.3); CALCIUM 8.4 mg/dL (8.5-10.1); CREATININE - SERUM 1.6 mg/dL (0.6-1.3); PROTEIN - SERUM 6.2 g/dL (6.4-8.2)
== END | disposition home or self-care (01) ==
LOC: D.LABREF 17:34
PROVIDERS: Nurse Practitioner
DX: I10 Essential (primary) hypertension (principal)

== ENCOUNTER → 2017-11-01 08:41 | Outpatient (CLI) | payer MEDICAID ==
[~2017-11-01] VITALS: Ht 175.3 cm; Wt 99.1 kg
--- NOTE | ~2017-11-01 | HEMODYNAMI ---
PATIENT:NISHA SABA MEDICAL RECORD: [id number] : 51 LOCATION:[facility] ADMISSION DATE: 11/01/17 Generatedon:11/01/201711:19 Patient name: NISHA SABA Patient #: [id number] : 1955 Date of study: 11/01/2017 Page: Of Hemodynamic Procedure Report Patient Data Patient Demographics Procedure consent was obtained First Name: NISHA Gender: Female Last Name: WANDY : 1955 [facility] Initial: GIULIANO Age: 62 year(s) Patient #: [id number] Race: SSN: [id number] Additional ID: [id number] Contact details [address]: [address] [place] [address] State: [place] City: [place] Zip code: [address] Past Medical History Allergies: No known allergies Admission Admission Data Admission Date: 11/01/2017 Admission Time: 8:41 Procedure Procedure Types Cath Procedure Diagnostic Procedure Sedation Charges Moderate Sedation up to 15 minutes Peripheral Cath Diagnostic Procedure Cath Peripheral Xeaes-Cimsaaa-Twu-Off Procedure Description Procedure Date Procedure Date: 11/01/2017 Procedure Start Time: 10:56 Procedure End Time: 11:19 Procedure Staff Name Function Luisito Cantu MD Performing Physician Jaida Quintanilla RT Monitor Real Chan RN Nurse Ana Vilchis RT Scrub Procedure Data Cath Procedure Fluoroscopy Diagnostic fluoroscopy Total fluoroscopy Time: 5.8 time: 5.8 min min Diagnostic fluoroscopy Total fluoroscopy dose: 289 dose: 289 mGy mGy Contrast Material Contrast Material Type Amount (ml) Isovue 300 104 Entry Location Entry Primary Successful Side Size Upsize Upsize Entry Closure Succes sful Closure Location (Fr) 1 (Fr) 2 (Fr) Remarks Device Remarks Femoral Left 5 Fr 7 Fr 7 Fr Exoseal artery Long Short Estimated blood loss: 10 ml Diagnostic catheters Device Type Used For End Catheter Placement DIAGNOSTIC UF 5Fr Abdominal catheter ([id number]) aortogram with runoff DIAGNOSTIC MPA-2 5Fr Procedure catheter ([id number]) Procedure Complications No complications Procedure Medications Medication Administration Route Dosage Oxygen NC 2 l/min Heparin Flush Bag added to field 2 bags (1000units/500ml NS) 0.9% NaCl I.V. 100 ml/hr Fentanyl I.V. 50 mcg Versed I.V. 1 mg Fentanyl I.V. 50 mcg Versed I.V. 1 mg Fentanyl I.V. 50 mcg Fentanyl I.V. 50 mcg Hemodynamics Rest Heart Rate: 64 (bpm) Snapshots Pre Cath Intra NCS Post Cath Vital Signs Time Heart Resp SPO2 etCO2 NIBP (mmHg) Rhythm Pain Sedation Rate (ipm) (%) (mmHg) Status Level (bpm) 10:44:14 65 15 95 0 123/61(100) NSR 0 (11) 10(A) , No pain 10:48:51 66 17 94 0 131/86(129) NSR 0 (11) 10(A) , No pain 10:53:29 62 16 100 18 107/57(90) NSR 0 (11) 10(A) , No pain 10:58:10 64 18 100 25.5 116/57(83) NSR 0 (11) 9(A) , No pain 11:02:50 64 17 100 1.5 113/60(72) NSR 0 (11) 9(A) , No pain 11:07:31 64 18 100 0 117/64(90) NSR 0 (11) 9(A) , No pain 11:12:13 63 16 100 10.5 115/55(85) NSR 0 (11) 9(A) , No pain 11:16:54 64 16 100 36.8 122/65(93) NSR 0 (11) 9(A) , No pain Medications Time Medication Route Dose Verified Delivered Reason Notes Effec tiveness by by 10:49:29 Oxygen NC 2 Luisito Noble Per l/min Pepe Chan RN physician 10:49:37 Heparin Flush added 2 Luisito Noble used for Bag to bags Pepe Chan ivory carver (1000units/500ml field NS) 10:49:47 0.9% NaCl I.V. 100 Luisito Noble Per ml/hr Pepe Chan RN physician 10:51:53 Fentanyl I.V. 50 Luisito Chan RN sedation 10:51:59 Versed I.V. 1 mg Luisito Noble for Pepe Chan RN sedation 10:57:25 Fentanyl I.V. 50 Luisito Noble for amelia Chan RN sedation 10:57:29 Versed I.V. 1 mg Luisito Noble for Pepe Chan RN sedation 11:04:04 Fentanyl I.V. 50 Luisito Noble for amelia Chan RN sedation 11:07:19 Fentanyl I.V. 50 Luisito Noble for amelia Chan RN sedation Procedure Log Time Note 10:20:53 Real Chan RN sent for patient. Start room use. 10:28:45 Time tracking: Regular hours 10:28:51 Plan of Care:Hemodynamics will remain stable., Cardiac rhythm will remain stable., Comfort level will be maintained., Respiratory function will remain adequate., Patient/ family verbilizes understanding of procedure., Procedure tolerated without complication., Recovers from procedure without complications.. 10:34:21 Patient received from Pre/Post Procedure Room to [facility] 1 Alert and oriented. Tansferred to table in Supine position. 10:34:23 Warm blankets applied, and dwayne hugger turned on for patient comfort. 10:34:23 Correct patient and procedure confirmed by team. 10:34:24 Signed procedure consent form obtained from patient. 10:34:25 ECG and BP/O2 sat monitors applied to patient. 10:43:20 Vital chart was started 10:43:33 Rhythm: atrial flutter 10:43:34 Full Disclosure recording started 10:43:40 H&P Date Dictated: 10/27/2017 Within 30 days and on chart., H&P Addendum completed by physician on day of procedure. (MUST COMPLETE FOR ALL OUTPATIENTS). 10:44:17 Pre-procedure instructions explained to patient. 10:44:17 Pre-op teaching completed and patient verbalized understanding. 10:44:19 Family in patients room. 10:44:21 Patient NPO since Midnight. 10:44:27 Patient allergic to No known allergies 10:44:34 Is patient on blood thinner?No 10:44:45 Patient diabetic? Yes. 10:44:49 Previous problem with sedation/anesthesia? No ? 10:44:52 Snore? Yes 10:44:53 Sleep apnea? Yes 10:44:54 Deviated septum? No 10:44:55 Opens mouth fully? Yes 10:44:56 Sticks out tongue? Yes 10:44:57 Airway obstruction? Yes COPD 10:44:59 Dentures? Yes Partial In 10:45:58 Pre procedure: right dorsailis pedis pulse 1+ Palpable, but thready & weak; easily obliterated 10:46:02 Pre procedure: left dorsailis pedis pulse 1+ Palpable, but thready & weak; easily obliterated 10:46:06 Patient pain scale 0/10 ?. 10:46:10 IV patent on arrival in left hand with 0.9% NaCl at [facility]. 10:46:13 Lab results completed and on chart. 10:46:16 Bilateral groins area was prepped with chlora-prep and draped in sterile fashion 10:46:17 Alarms reviewed by R. N. 10:46:17 Sharps counted by scrub and verified by R.N. 10:46:49 Final Timeout: patient, procedure, and site verified with staff and physician. All members of the team are in agreement. 10:46:50 Right groin site verified by team. 10:46:54 Physical assessment completed. ASA score P 2 - A patient with mild systemic disease as per Luisito Cantu MD. 10:46:57 Sedation plan: IV Moderate Sedation Medication:Versed, Fentanyl 10:48:49 Use device set CATH PACK 10:48:50 ACIST Syringe (44945) opened to sterile field. 10:48:50 ACIST Hand Control (79884) opened to sterile field. 10:48:51 ACIST Manifold (04463) opened to sterile field. 10:48:51 Medline Cath Pack ([id number]) opened to sterile field. 10:48:52 If diabetic: On Metformin? No 10:48:52 Bag Decanter () opened to sterile field. 10:48:52 DIAGNOSTIC WIRE .035 260cm J wire (605746) opened to sterile field. 10:49:12 SHEATH 5Fr Prelude ([id number]) opened to sterile field. 10:49:27 PERCUTANEOUS ENTRY 19GA needle opened to sterile field. 10:49:29 Oxygen 2 l/min NC was administered by Real Chan RN; Per physician; 10:49:37 Heparin Flush Bag (1000units/500ml NS) 2 bags added to field was administered by Real Chan RN; used for procedure; 10:49:47 0.9% NaCl 100 ml/hr I.V. was administered by Real Chan RN; Per physician; 10:50:34 Zero performed for pressure channel P1 10:50:42 Baseline sample Acquired. 10:51:53 Fentanyl 50 mcg I.V. was administered by Real Chan RN; for sedation; 10:51:59 Versed 1 mg I.V. was administered by Real Chan RN; for sedation; 10:56:20 Procedure started. 10:56:24 Local anesthetic to left femerol artery with Lidocaine 2% by Luisito Cantu MD.INITIAL ACCESS ONLY 10:57:25 Fentanyl 50 mcg I.V. was administered by Real Chan RN; for sedation; 10:57:28 A 5 Fr sheath was inserted into the Left Femoral artery 10:57:29 Versed 1 mg I.V. was administered by Real Chan RN; for sedation; 10:57:37 A DIAGNOSTIC UF 5Fr catheter ([id number]) was advanced over the wire and used for Abdominal aortogram with runoff. 11:00:56 INFLATOR Merit BasixCompak (TS2799) opened to sterile field. 11:01:55 GLIDE WIRE Super Stiff Angled 260cm (IJ2637) opened to sterile field. 11:01:55 SHEATH 7FR ARROW 45cm ([id number]) opened to sterile field. 11:02:47 TORQUE DEVICE PLASTIC .038 ( TD01) opened to sterile field. 11:03:03 SS glide wire advanced. 11:03:19 Sheath upsized to a 7 Fr Long. 11:03:54 SHEATH 7FR [place] (QCQ334) opened to sterile field. 11:04:04 Fentanyl 50 mcg I.V. was administered by Real Chan RN; for sedation; 11:05:07 Catheter exchanged over wire. 11:05:14 A DIAGNOSTIC MPA-2 5Fr catheter ([id number]) was advanced over the wire and used for Procedure. 11:07:19 Fentanyl 50 mcg I.V. was administered by Real Chan RN; for sedation; 11:09:03 CHOICE PT Extra Support J 300cm guide wire ([id number]) opened to sterile field. 11:11:31 Wire removed. 11:11:59 Unable to advance Arrow sheath over horn. Will bring back and go antegrade. 11:12:11 Sheath upsized to a 7 Fr Short. 11:12:19 EXOSEAL 7Fr (EX700) opened to sterile field. 11:12:32 Sheath removed intact; hemostasis achieved with Exoseal to the Left Femoral artery. 11:12:48 Procedure ended.(Physican Out) 11:13:46 Fluoroscopy time 05.80 minutes. 11:13:50 Flurop Dose total: 289 11:13:50 Fluoroscopy dose: 289 mGy 11:14:21 Contrast amount:Isovue 300 104ml. 11:14:22 Sharps counted by scrub and verified by R.N. 11:15:38 Insertion/operative site no bleeding no hematoma. 11:15:46 Post-op/insertion site Left Femoral artery dressed using a 4 x 4 and Tegaderm. 11:15:51 Post left femerol artery:stable, clean and dry 11:15:53 Post Procedure Pulses reassessed and unchanged 11:15:56 Post-procedure physical assessment completed. ASA score P 2 - A patient with mild systemic disease as per Luisito Cantu MD. 11:15:59 Post procedure rhythm: unchanged. 11:16:04 Estimated blood loss: 10 ml 11:16:05 Post procedure instruction explained to patient.Patient verbalizes understanding. 11:16:06 Patient needs reinforcement of post procedure teaching. 11:16:45 Procedure type changed to Cath procedure, Diagnostic procedure, Sedation Charges, Moderate Sedation up to 15 minutes, Peripheral Cath Diagnostic Procedure, Cath Peripheral, Sagnx-Kezsmec-Jnu-Off 11:16:50 Procedure Complication : No complications 11:16:52 See physician's report for complete and final results. 11:17:52 Procedure and supply charges have been captured, reviewed, submitted and are correct. 11:18:50 Vital chart was stopped 11:18:52 Report given to Pre/Post Procedure Room. 11:18:56 Patient transfered to Pre/Post Procedure Room with Stretcher. 11:19:07 Procedure ended. 11:19:07 Full Disclosure recording stopped 11:19:13 End room use (Document Last) Device Usage Item Name Manufacture Quantity Catalog Number Hospital Part Current Mini mal Lot# / Charge Number Stock Stock Serial# Code ACIST Acist 1 90157 482690 752529 640722 20 Syringe Medical (82966) Systems Inc ACIST Hand Acist 1 21425 519267 338277 604559 5 Control Medical (43996) Systems Inc ACIST Acist 1 94761 411100 320845 098669 5 Manifold Medical (59529) Systems Inc Medline Cath Cardinal 1 [id number] 708303 10030 876018 5 Pack Health ([id number]) Bag Decanter Microtek 1 2001S 370631 62412 423266 5 (2001S) Medical Inc. DIAGNOSTIC [facility] [place] 1 715205 749171 564378 658429 30 WIRE .035 260cm J wire (895698) SHEATH 5Fr Merit 1 [id number] 736110 964845 909719 5 Prelude Medical ([id number]) PERCUTANEOUS Cook Medical 1 D37116 394281 117033 5 ENTRY 19GA needle DIAGNOSTIC Cardinal 1 [id number] 691504 330731 187891 10 UF 5Fr Health catheter (037834V7) INFLATOR Merit 1 RX6335 939638 791454 733744 15 [facility] Medical BasixCompak (IF3719) GLIDE WIRE Terumo 1 SP7778 419890 252002 140776 5 Super Stiff Angled 260cm (HX7433) SHEATH 7FR Teleflex 1 CL-60162 812069 227678 179642 1 ARROW 45cm (FK61140) TORQUE [place] 1 TD01 177409 388203 607509 5 DEVICE Scientific PLASTIC .038 ( TD01) SHEATH 7FR Terumo 1 CMO119 979817 007367 373673 5 [place] (EEI872) DIAGNOSTIC Cardinal 1 [id number] 121275 641585 178231 5 MPA-2 5Fr Health catheter (233469J) CHOICE PT [place] 1 [id number] 328049 747685 340633 5 Extra Scientific Support J 300cm guide wire ([id number]) EXOSEAL 7Fr Cardinal 1 EX700 627243 428834 021594 5 (EX700) Health Signature Audit [place] Stage Time Signature Unsigned Intra-Procedure 11/01/2017 Jaida 11:19:26 AM Counts RT(R) Signatures Monitor : Jaida Signature : Counts RT Date : Time : [facility] [address] [place] [address]
--- NOTE | ~2017-11-01 | OP ---
PATIENT NAME: NISHA SABA MEDICAL RECORD: [id number] :51 LOCATION:D.CAT ADMISSION DATE: SURGEON: FUENTES LI MD DATE OF OPERATION: 11/01/2017 PROCEDURES: 1. Aortofemoral runoff. 2. Abdominal aortography. INDICATION: Claudication and peripheral vascular disease. PROCEDURE IN DETAIL: After informed consent was obtained and after detailed explanation of risks, benefits as well as alternative therapies, the patient elected to proceed with angiogram and aortofemoral runoff. The left femoral area was prepped and draped in normal sterile fashion. The left femoral artery was cannulated via modified Seldinger technique with placement of a 7-[place] sheath. All catheters exchanged through this sheath. FINDINGS: The abdominal aortography was performed. The catheter was pulled down for aortofemoral runoff. Abdominal aortography reveals no significant abdominal aortic disease, no dissection or aneurysm formation. RIGHT LEG: A. Iliac: The iliac horn was extremely vertical iliac horn, the iliac takes off almost straight down as does the left iliac. The iliacs have moderate calcification, qvqv-np-aumhzdxm irregularities, but no flow-limiting stenosis. B. Femoral system: The common and deep femoral are widely patent. Superficial femoral has area of 80+ percent stenosis that is heavily calcified in the mid vessel. C. Popliteal and infrapopliteal vessels are patent with good 3-vessel runoff to the foot. LEFT LEG: A. Iliac: The common iliac has previously placed stent. This is widely patent with no significant restenosis. No disease elsewise of the iliac system. B. Femoral system: The common superficial and deep femoral have mild irregularities, but no flow-limiting stenosis. C. Popliteal and infrapopliteal vessels are widely patent with good 3-vessel runoff to the foot. ATTEMPTED SENIOR LABORATORY TECHNICIAN STENT OF THE RIGHT SFA: We attempted to get a sheath around the horn; however, due to the vertical nature of the horn, no sheath would advance through the iliac system. OVERALL IMPRESSION: Significant disease of the right SFA that is amenable to transcatheter revascularization via antegrade approach on the right leg in the near future. TRANSINT:[id number] Voice Confirmation ID: [id number] DOCUMENT ID: [id number] OPERATIVE REPORT [id number] NISHA SABA FUENTSE LI MD at 1050 CC: [id number] DICTATION DATE: 11/01/17 1118 SILICA FILTER OPERATOR: 11/01/17 1226 DEP CLI 11/01/17 [place] [id number] [place] [id number]
[2017-11-01 09:25] VITALS: BP 129/59; Ht 175.3 cm; Wt 99.1 kg
[2017-11-01 09:57] LABS: BASOPHILS 0.4 % (0-2); EOSINOPHILS 0.7 % (0-7); HEMATOCRIT 34.7 % (36.0-48.0); IMMATURE GRANULOCYTES 0.5 % (0-5); LYMPHOCYTES 15.8 % (15-50); MCH 28.7 pg (26.0-34.0); MCHC 31.7 g/dL (31.0-37.0); MCV 90.6 fL (80.0-100.0); MEAN PLATELET VOLUME 10.1 fL (7.4-10.4); MONOCYTES 5.9 % (2-11); NEUTROPHILS 76.7 % (40-80); RBC 3.83 10x6/uL (4.00-5.40); RDW 18.1 % (11.5-14.5); WBC 12.2 10x3/uL (4.8-10.8)
[2017-11-01 10:01] LABS: PLATELET COUNT 436 10x3/uL (130-400)
[2017-11-01 10:05] LABS: ANION GAP 8.5 mmol/L (8-16); CALCIUM 8.7 mg/dL (8.5-10.1); CARBON DIOXIDE 35.6 mmol/L (21.0-32.0); CREATININE - SERUM 1.4 mg/dL (0.6-1.3); POTASSIUM - SERUM 3.1 mmol/L (3.5-5.1)
== END | disposition home or self-care (01) ==
LOC: D.CATH 08:41
PROVIDERS: Internal Medicine Interventional Cardiology
DX: I70.211 Atherosclerosis of native arteries of extremities with intermittent claudication, right leg (principal); Z01.812 Encounter for preprocedural laboratory examination

== ENCOUNTER 2017-11-04 08:15 | Outpatient (CLI) | payer MEDICAID ==
[~2017-11-04] VITALS: Ht 175.3 cm; Wt 98.2 kg
--- NOTE | ~2017-11-04 | TEE ---
PATIENT:NISHA SABA MEDICAL RECORD: [id number] LOCATION:D.[facility] AGE OF PATIENT: 62 ADMISSION DATE: 11/04/17 SEX: F REFERRING PHYSICIAN: INTERPRETING PHYSICIAN: FUENTES CANTU MD TRANSESOPHAGEAL ECHOCARDIOGRAM Date: 11/04/17 SANTY CHARGE Y INDICATIONS: ASSESS FOR VEGTATION ON MITRAL VALVE PREMEDICATIONS: PATIENT'S RESPONSE PROCEDURE DOPPLER MEASUREMENTS: LVIT LA PA RA LVOT RVOT Asc. Ao AV Gradient Peak AV Mean AV Area MV Gradient Peak MV Mean MV Area INTERPRETATION: Doppler: 2-D: NO VEGATATION COLOR FLOW DOPPLER NORMAL SALINE STUDY: MISCELLANOUS: DIAGNOSIS: PLAN: Plug Assembler:1 Dr. Cantu Chief Embalmer: Lupis REYNOSO COMMENTS: DATE OF SERVICE: 11/04/2017 PROCEDURE: Transesophageal echo. INDICATION: Mitral valve abnormality. PROCEDURE: After informed consent was obtained and after a detailed explanation of risks, benefits as well as alternative therapies, the patient elected to proceed with the transesophageal echo. Conscious sedation was performed per TRANSESOPHAGEAL ECHOCARDIOGRAM REPORT [id number] NISHA SABA anesthesia. Continuous heart rate, O2 saturation, blood pressure monitoring all remained stable. FINDINGS: 1. Left ventricular chamber size is within normal limits. Left ventricular systolic function is normal. Overall ejection fraction estimated at 60%. 2. Left atrium, right atrium, and right ventricular chamber sizes are mildly dilated. 3. Valvular structures: Mitral valve demonstrates a discrete calcification; however, this is not compatible with endocarditis, only calcification of the valve. The remaining valvular structures have normal structure and motion. 4. Doppler interrogation reveals mild mitral regurgitation, no other valvular insufficiency or stenosis. 5. No evidence of pericardial effusion or left ventricular thrombus. OVERALL IMPRESSION: Calcification of the mitral valve not compatible with endocarditis. TRANSINT:[id number] Voice Confirmation ID: [id number] DOCUMENT ID: [id number] at 1056 CC: [id number] DICTATION DATE: 11/04/17 1256 DIRECTOR OF CRITICAL CARE: 11/04/17 1446 DEP CLI 11/04/17 [facility] [address] [place] [address]
--- NOTE | ~2017-11-04 | OP ---
PATIENT NAME: NISHA SABA MEDICAL RECORD: [id number] :51 LOCATION:D.CAT ADMISSION DATE: SURGEON: FUENTES LI MD DATE OF OPERATION: 11/04/2017 PROCEDURES: 1. BLACKSMITH SUPERVISOR, right SFA. 2. Unilateral extremity angiography. INDICATION: Claudication and nonhealing ulcer, right lower extremity. PROCEDURE IN DETAIL: After informed consent was obtained and after detailed explanation of risks, benefits as well as alternative therapies, the patient elected to proceed with angiogram and angioplasty. The right brachial area was prepped and draped in normal sterile fashion. right brachial artery was cannulated via modified Seldinger technique with placement of 6 x 90 sheath. All catheters exchanged through this sheath. FINDINGS: There right SFA has 80% stenosis in the mid vessel. This was addressed with a 6.0 balloon, no stent would reach from the brachial position. There was excellent result with no dissection and 30% residual stenosis. Definitely not flow limiting at this time. IMPRESSION: Successful BLACKSMITH SUPERVISOR of the right SFA going from 80% initial stenosis to 20% to 30% residual stenosis. TRANSINT:[id number] Voice Confirmation ID: [id number] DOCUMENT ID: [id number] FUENTES LI MD at 1056 CC: [id number] DICTATION DATE: 11/04/17 1258 PIPELINE CONSTRUCTION INSPECTOR: 11/04/17 1305 DEP CLI 11/04/17 [place] [id number] [place] [address]
--- NOTE | ~2017-11-04 | HP ---
PATIENT: NISHA YANG MEDICAL RECORD: [id number] ACCOUNT: [id number] LOCATION:[facility] : 51 ADMISSION DATE: 11/04/17 HISTORY AND PHYSICAL EXAMINATION DIAGNOSES: 1. Claudication. 2. Peripheral vascular disease. 3. Nonhealing ulcer, right lower extremity. 4. Significant disease, right SFA. 5. Aortic valve abnormality on transthoracic echo. HISTORY OF PRESENT ILLNESS: Ms. Yang presents with nonhealing ulcers on her right lower extremity. She has 2 possibly etiology to this. She does have peripheral vascular disease, significant stenosis of her SFA. We attempted a left groin staking to go around the horn; however, her horn was very steep and very heavily calcified, we cannot get the catheter around the horn to perform this intervention. We are now bringing her back to divide the brachial or antegrade stick on the right as well she had a transthoracic echo in our office. This suggested a lesion on the aortic valve, possibly compatible with endocarditis. She is set for transesophageal echocardiogram as well. PHYSICAL EXAMINATION: GENERAL APPEARANCE: Well-nourished, well-developed, appears stated age. Level of distress, comfortable. PSYCHIATRIC: Mental status, alert, normal affect. Orientation, oriented to time, place and person. EYES: Lids and conjunctiva, noninjected. No discharge, no pallor. ENT: Lips, teeth, gums, normal dentition. Oropharynx, no cyanosis, no pallor. NECK: Carotid arteries, bilateral normal upstroke, no bruits, no thrills. JUGULAR VEINS: No jugular venous pressure or distention. CERVICAL LYMPH NODES: Nontender, nonenlarged. THYROID: Not enlarged. Nontender. No nodules. LUNGS: Respiratory effort, unlabored. CHEST: Normal curvature. No thoracic deformity. No chest wall tenderness. Percussion, resonant. Auscultation, clear. No wheezes, no rales, no rhonchi. CARDIOVASCULAR: Precordial exam, nondisplaced. No heaves or pericardial thrills. Rate and rhythm, regular. Heart sounds, normal S1, normal S2. No S3, no gallop, no rub. Systolic murmur, not heard. Diastolic murmur, not heard. EXTREMITIES: No cyanosis, no edema. Peripheral pulses, full and equal in all extremities, except as noted. No bruits appreciated. ABDOMEN: Soft, nondistended. Normal aorta. No bruit. Nontender. No masses. Liver, nontender, no hepatomegaly. Spleen, nontender, no splenomegaly. MUSCULOSKELETAL: No joint tenderness. No joint swelling. No erythema. NEUROLOGICAL: Normal gait, normal strength, normal tone. SKIN: Warm and dry. OVERALL IMPRESSION: Nonhealing ulcers, possibly embolic from the lesion on the aortic valve. We will do transesophageal echo, possibly secondary to peripheral vascular disease, however, we did transcatheter revascularization of the right lower extremity. TRANSINT:[id number] Voice Confirmation ID: [id number] DOCUMENT ID: [id number] HISTORY AND PHYSICAL [id number] NISHA YANG JEFFREY MD at 1056 CC: [id number] DICTATION DATE: 11/04/17914 DRILLER BRAKE LINING: 11/04/17 1007 DEP CLI 11/04/17 [place] [id number] [place] [address]
--- NOTE | ~2017-11-04 | HEMODYNAMI ---
PATIENT:NISHA SABA MEDICAL RECORD: [id number] : 51 LOCATION:[facility] ADMISSION DATE: 11/04/17 Generatedon:11/04/201712:59 Patient name: NISHA SABA Patient #: [id number] : 1955 Date of study: 11/04/2017 Page: Of Hemodynamic Procedure Report Patient Data Patient Demographics Procedure consent was obtained First Name: NISHA Gender: Female Last Name: WANDY : 1955 [facility] Initial: GIULIANO Age: 62 year(s) Patient #: [id number] Race: SSN: [id number] Additional ID: [id number] Contact details [address]: [address] [place] [address] State: [place] City: [place] Zip code: [address] Past Medical History Allergies: No known allergies Admission Admission Data Admission Date: 11/04/2017 Admission Time: 8:15 Lab Results Lab Result Date: 11/04/2017 Lab Result Time: 9:10 Biochemistry Name Units Result Min Max BUN mg/dl 17 --(---*)-- 7 18 Creatinine mg/dl 1.4 --(----)*- 0.6 1.3 CBC Name Units Result Min Max Hematocrit % 36.5 *-(----)-- 42 54 Hemoglobin g/dl 11.6 *-(----)-- 13.5 17.5 Procedure Procedure Types Cath Procedure Diagnostic Procedure SANTY Sedation Charges Moderate Sedation up to 15 minutes Peripheral vascular Intervention Angioplasty Angioplasty Fem/Pop Procedure Description Procedure Date Procedure Date: 11/04/2017 Procedure Start Time: 12:37 Procedure End Time: 12:58 Procedure Staff Name Function Luisito Cantu MD Performing Physician Ruben Del Angel RT Monitor Shiraz Boo RT Scrub Radha Ortiz RN Nurse Lisette Begum CRNA Additional personnel Jermaine Raphael Supervisor Vendor Quality Jaida Quintanilla RT Monitor Ana Vilchis RT Scrub Procedure Data Cath Procedure Fluoroscopy Diagnostic fluoroscopy Total fluoroscopy Time: 2.8 time: 2.8 min min Diagnostic fluoroscopy Total fluoroscopy dose: 86 dose: 86 mGy mGy Contrast Material Contrast Material Type Amount (ml) Isovue 300 33 Entry Location Entry Primary Successful Side Size Upsize Upsize Entry Closure Succes sful Closure Location (Fr) 1 (Fr) 2 (Fr) Remarks Device Remarks Brachial Right 6 Fr 6 Fr 6 Fr artery Short Long Short Estimated blood loss: 5 ml Diagnostic catheters Device Type Used For End Catheter Placement DIAGNOSTIC [place] 110cm 5 Procedure Fr catheter (005333) Procedure Complications No complications Procedure Medications Medication Administration Route Dosage Oxygen NC 3 l/min Hurricaine [place] P.O. 1 Sprays Refer to Anesthesia Notes for Sedation Medications 0.9% NaCl I.V. 100 ml/hr Lidocaine 2% added to field 20 Heparin Flush Bag added to field 2 bags (1000units/500ml NS) Versed I.V. 1 mg Fentanyl I.V. 50 mcg Versed I.V. 1 mg Fentanyl I.V. 50 mcg Heparin Bolus I.V. 4000 units Integrilin (Bolus I.V. 9 ml 2mg/ml) Integrilin (Bolus wasted 1 ml 2mg/ml) Fentanyl I.V. 50 mcg Plavix P.O. 600 mg Hemodynamics Rest HGB: 11.6 (g/dl) Heart Rate: 63 (bpm) Snapshots Pre Cath Intra NCS Post Cath Vital Signs Time Heart Resp SPO2 etCO2 NIBP (mmHg) Rhythm Pain Sedation Rate (ipm) (%) (mmHg) Status Level (bpm) 11:35:23 63 15 90 43.7 112/58(83) NSR 0 (11) 10(A) , No pain 11:39:39 62 22 97 45.3 121/63(107) NSR 0 (11) 10(A) , No pain 11:43:59 65 14 97 40 119/60(92) NSR 0 (11) 10(A) , No pain 11:49:04 62 18 91 12.8 110/56(88) NSR 0 (11) 10(A) , No pain 11:53:18 58 15 97 19.6 87/44(64) NSR 0 (11) 10(A) , No pain 11:57:30 59 18 95 0 77/46(58) NSR 0 (11) 9(A) , No pain 12:01:36 67 16 94 0 94/54(64) NSR 0 (11) 9(A) , No pain 12:05:44 81 15 97 28.6 111/66(86) NSR 0 (11) 9(A) , No pain 12:09:58 78 14 100 37.7 124/69(89) NSR 0 (11) 9(A) , No pain 12:14:14 80 16 98 0.7 121/67(102) NSR 0 (11) 9(A) , No pain 12:18:32 80 17 98 28.6 120/68(87) NSR 0 (11) 9(A) , No pain 12:22:48 80 18 99 23 124/68(100) NSR 0 (11) 9(A) , No pain 12:27:00 78 17 100 13.5 116/68(89) NSR 0 (11) 9(A) , No pain 12:31:14 81 16 98 27.9 118/64(98) NSR 0 (11) 9(A) , No pain 12:35:32 81 17 99 33.2 113/65(92) NSR 0 (11) 9(A) , No pain 12:39:46 80 17 100 12 114/63(92) NSR 0 (11) 9(A) , No pain 12:44:00 80 17 97 15.1 112/65(84) NSR 0 (11) 9(A) , No pain 12:48:12 82 17 98 18 113/64(88) NSR 0 (11) 9(A) , No pain 12:52:26 82 16 98 21.1 120/67(87) NSR 0 (11) 9(A) , No pain 12:56:38 81 17 98 28.6 123/78(99) NSR 0 (11) 9(A) , No pain Medications Time Medication Route Dose Verified Delivered Reason Notes Effectiveness by by 11:35:39 Oxygen NC 3 Luisito Garcia Per physician l/min Pepe Ortiz RN 11:35:59 Hurricaine [place] P.O. 1 Luisito Garcia used for Sprays Pepe Ortiz RN procedure 11:36:03 Refer to Luisito Garcia Anesthesia Notes Pepe Ortiz RN for Sedation Medications 11:36:16 0.9% NaCl I.V. 100 Luisito Buffie Per physician ml/hr Pepe Ortiz RN 12:05:13 Lidocaine 2% added 20ml Luisito Jorge for local to vial Pepe Cantu MD anesthetic field 12:05:19 Heparin Flush added 2 bags Luisitosho Jorge used for Bag to Pepe Cantu MD procedure (1000units/500ml field NS) 12:25:28 Versed I.V. 1 mg Luisito Castanonie for sedation Pepe Ortiz RN 12:25:34 Fentanyl I.V. 50 mcg Luisito Garcia for sedation Pepe Ortiz RN 12:38:28 Versed I.V. 1 mg Luisito Buffie for sedation Pepe Ortiz RN 12:38:30 Fentanyl I.V. 50 mcg Luisito Castanonie for sedation Pepe Ortiz RN 12:43:20 Heparin Bolus I.V. 4000 Luisito Garcia for units Pepe Ortiz RN anticoagulation 12:45:32 Integrilin I.V. 9 ml Luisito Garcia for (Bolus 2mg/ml) Pepe Ortiz RN antiplatelet therapy 12:48:16 Integrilin wasted 1 ml Luisito Garcia for (Bolus 2mg/ml) Pepe Ortiz RN antiplatelet therapy 12:48:29 Fentanyl I.V. 50 mcg Luisito Garcia for sedation Pepe Ortiz RN 12:53:53 Plavix P.O. 600 mg Luisito Garcia for Pepe Ortiz RN antiplatelet therapy Procedure Log Time Note 11:19:43 Shiraz Boo RT(R) sent for patient. Start room use. 11:19:44 Time tracking: Regular hours 11:19:48 Plan of Care:Hemodynamics will remain stable., Cardiac rhythm will remain stable., Comfort level will be maintained., Respiratory function will remain adequate., Patient/ family verbilizes understanding of procedure., Procedure tolerated without complication., Recovers from procedure without complications.. 11:26:02 Patient arrived from Pre/Post Procedure Room to [facility] 2. Patient remains on bed/stretcher for procedure. 11:26:03 Warm blankets applied, and dwayne hugger turned on for patient comfort. 11:26:04 Correct patient and procedure confirmed by team. 11::06 Signed procedure consent form obtained from patient. 11:26:06 ECG and BP/O2 sat monitors applied to patient. 11:26:16 Pre-procedure instructions explained to patient. 11:26:17 Pre-op teaching completed and patient verbalized understanding. 11:26:18 Family in patients room. 11:26:19 Patient NPO since Midnight. 11:27:18 Jermaine Raphael Manager Unit present for SANTY. 11:34:11 Vital chart was started 11:35:39 Oxygen 3 l/min NC was administered by Radha Ortiz RN; Per physician; 11:35:59 Hurricaine [place] 1 Sprays P.O. was administered by Radha Ortiz RN; used for procedure; 11:36:03 Refer to Anesthesia Notes for Sedation Medications was administered by Radha Ortiz RN; ; 11:36:16 0.9% NaCl 100 ml/hr I.V. was administered by Radha Ortiz RN; Per physician; 11:38:40 Baseline sample Acquired. 11:39:39 Rhythm: sinus rhythm 11:42:18 Lisette Begum CRNA present and monitoring patient for TIVA. 11:43:29 Patient allergic to No known allergies 11:43:36 Is patient on blood thinner?No 11:43:40 Patient diabetic? No. 11:43:43 Previous problem with sedation/anesthesia? No ? 11:43:48 Snore? No 11:43:49 Sleep apnea? No 11:43:50 Deviated septum? No 11:43:50 Opens mouth fully? Yes 11:43:51 Sticks out tongue? Yes 11:43:53 Airway obstruction? Yes copd 11:43:56 Dentures? Yes out 11:44:01 Patient pain scale 0/10 ?. 11:44:25 IV patent on arrival in right wrist with 0.9% NaCl at [facility]. 11:45:18 Lab results completed and on chart. 11:48:28 Physician paged 11:49:23 Lab Result : BUN 17 mg/dl 11:49:23 Lab Result : Creatinine 1.4 mg/dl 11:49:23 Lab Result : Hemoglobin 11.6 g/dl 11:49:23 Lab Result : Hematocrit 36.5 % 11:52:49 Physician arrived 11:52:49 --------ALL STOP TIME OUT------ 11:52:50 Final Timeout: patient, procedure, and site verified with staff and physician. All members of the team are in agreement. 11:52:56 Physical assessment completed. ASA score P 3 - A patient with severe systemic disease as per Luisito Cantu MD. 11:53:06 Sedation plan: TIVA Medication:Propofol 11:53:56 SANTY started. 11:57:48 SANTY completed. 11:58:00 PT transferred to table. 12:05:13 Lidocaine 2% 20ml vial added to field was administered by Luisito Cantu MD; for local anesthetic; 12:05:19 Heparin Flush Bag (1000units/500ml NS) 2 bags added to field was administered by Luisito Cantu MD; used for procedure; 12:18:32 ACIST Syringe (74732) opened to sterile field. 12:18:33 Bag Decanter (2002S) opened to sterile field. 12:18:33 Medline Cath Pack ([id number]) opened to sterile field. 12:18:34 DIAGNOSTIC WIRE .035 260cm J wire (150889) opened to sterile field. 12:18:37 ACIST Hand Control (63485) opened to sterile field. 12:18:37 ACIST Manifold (21598) opened to sterile field. 12:18:39 PERCUTANEOUS ENTRY 19GA needle opened to sterile field. 12:18:40 Tegaderm 4 x 4 (1626W) opened to sterile field. 12:19:15 SHEATH Prelude 6Fr 0.035 (USL-4K-56-035) opened to sterile field. 12:19:16 INFLATOR Merit BasixCompak (KF2997) opened to sterile field. 12:19:27 SHEATH 6FR Brite Tip 90cm (987770S) opened to sterile field. 12:24:55 --------ALL STOP TIME OUT------ 12:24:56 Final Timeout: patient, procedure, and site verified with staff and physician. All members of the team are in agreement. 12:25:07 Rt femoral site verified by team. 12:25:07 Right Brachial site verified by team. 12:25:14 Physical assessment completed. ASA score P 3 - A patient with severe systemic disease as per Luisito Cantu MD. 12:25:18 Sedation plan: IV Moderate Sedation Medication:Versed, Fentanyl 12:25:28 Versed 1 mg I.V. was administered by Radha Ortiz RN; for sedation; 12:25:34 Fentanyl 50 mcg I.V. was administered by Radha Ortiz RN; for sedation; 12:29:37 Shiraz Boo RT(R) was relieved by Jaida Quintanilla RT(R) as monitoring person 12:32:57 Full Disclosure recording started 12:37:29 Procedure started. 12:37:47 Local anesthetic to right brachial artery with Lidocaine 2% by Luisito Cantu MD.INITIAL ACCESS ONLY 12:38:28 Versed 1 mg I.V. was administered by Radha Ortiz RN; for sedation; 12:38:30 Fentanyl 50 mcg I.V. was administered by Radha Ortiz RN; for sedation; 12:38:52 A 6 Fr Short sheath was inserted into the Right Brachial artery 12:39:15 260 J wire advanced. 12:40:24 A DIAGNOSTIC [place] 110cm 5 Fr catheter (008557) was advanced over the wire and used for Procedure. 12:40:56 CATHETER ADVANCED OVER DOWN TO DISTAL ABD AORTA 12:40:58 Catheter exchanged over wire. 12:41:06 Sheath upsized to a 6 Fr Long. 12:42:37 Wire removed. 12:42:51 CHOICE PT Extra Support J 300cm guide wire ([id number]) opened to sterile field. 12:43:20 Heparin Bolus 4000 units I.V. was administered by Radha Ortiz RN; for anticoagulation; 12:45:32 Integrilin (Bolus 2mg/ml) 9 ml I.V. was administered by Radha Ortiz RN; for antiplatelet therapy; 12:45:59 CHOICE PT ES wire advanced. 12:46:26 Inflation number: 1 A SABER 6.0 x 6 x 150 balloon ([id number]) was prepped and advanced across the Distal Superficial Femoral, Right, then inflated to 9 JIMI for 0:15 (min:sec). 12:46:43 Balloon removed over the wire. 12:48:16 Integrilin (Bolus 2mg/ml) 1 ml wasted was administered by Radha Ortiz RN; for antiplatelet therapy; 12:48:29 Fentanyl 50 mcg I.V. was administered by Radha Ortiz RN; for sedation; 12:48:55 The SMART 6 X 80 X 120 stent ([id number]) was discarded because of failure to cross lesion 12:49:35 Stent catheter was removed intact over wire. 12:49:49 Sheath upsized to a 6 Fr Short. 12:50:43 Procedure ended.(Physican Out) 12:51:55 Fluoroscopy time 02.80 minutes. 12:52:03 Fluoroscopy dose: 86 mGy 12:52:03 Flurop Dose total: 86 12:52:07 Contrast amount:Isovue 300 33ml. 12:52:08 Sharps counted by scrub and verified by R.N. 12:52:25 Insertion/operative site no bleeding no hematoma. 12:52:29 Post-op/insertion site Right Brachial artery dressed using a 4 x 4 and Tegaderm. 12:52:38 Post right brachial artery:stable, clean and dry 12:52:40 Post Procedure Pulses reassessed and unchanged 12:52:42 Post-procedure physical assessment completed. ASA score P 2 - A patient with mild systemic disease as per Luisito Cantu MD. 12:52:49 Post procedure rhythm: unchanged. 12:52:57 Estimated blood loss: 5 ml 12:52:58 Post procedure instruction explained to patient.Patient verbalizes understanding. 12:52:59 Patient needs reinforcement of post procedure teaching. 12:53:23 Procedure type changed to Cath procedure, Diagnostic procedure, SANTY, Sedation Charges, Moderate Sedation up to 15 minutes, Peripheral vascular Intervention, Angioplasty, Angioplasty Fem/Pop 12:53:53 Plavix 600 mg P.O. was administered by Radha Ortiz RN; for antiplatelet therapy; 12:54:00 Procedure Complication : No complications 12:54:01 See physician's report for complete and final results. 12:55:04 EXOSEAL 6Fr (EX600) opened to sterile field. 12:55:54 ADHESIVE DRAPE CAUSED C-SHAPED BRUISING AROUND ACCESS SITE 12:57:33 GLIDE WIRE Super Stiff Angled 260cm (SC0933) opened to sterile field. 12:58:45 Procedure and supply charges have been captured, reviewed, submitted and are correct. 12:58:45 Vital chart was stopped 12:58:47 Report given to Pre/Post Procedure Room. 12:58:49 Patient transfered to Pre/Post Procedure Room with Stretcher. 12:58:51 Procedure ended. 12:58:51 Full Disclosure recording stopped 12:58:59 End room use (Document Last) Intervention Summary Intervention Notes Time ActionType Lesion and Equipment Action# Pressure Duration Attributes Used 12:46:26 Inflate Distal SABER 6.0 x 1 9 00:15 balloon Superficial 6 x 150 Femoral, balloon Right ([id number]) 12:48:55 Discard SMART 6 X self 80 X 120 expanding stent stent ([id number]) Device Usage Item Name Manufacture Quantity Catalog Number Hospital Part Current Minimal Lot# / Charge Number Stock Stock Serial# Code ACIST Syringe Acist 1 65688 180903 233464 162685 20 (11399) [employer] Bag Decanter Microtek 1 2001S 762736 74588 733126 5 (2001S) Medical Inc. Medline Cath Cardinal 1 [id number] 558120 98940 211241 5 Pack Health ([id number]) DIAGNOSTIC WIRE [facility] [place] 1 644159 585885 134947 472937 30 .035 260cm J wire (166037) ACIST Hand Acist 1 69317 682791 961370 436194 5 Control (18359) [employer] ACIST Manifold Acist 1 66883 183760 869900 378151 5 (18988) [employer] PERCUTANEOUS Cook Medical 1 Z17170 683203 451465 5 ENTRY 19GA needle Tegaderm 4 x 4 3M 1 1626W 570679 868775 008088 5 (1626W) SHEATH Prelude Merit 1 WBZ-2C-00-35 960334 3051401 866740 5 6Fr 0.035 Medical (OFZ-3X-02-035) INFLATOR Merit Merit 1 XJ3100 513559 947519 828421 15 [facility] (XM8150) SHEATH 6FR Cardinal 1 401-690M 130845 941359 889197 5 Brite Tip 90cm Health (282256C) DIAGNOSTIC Terumo 1 40-4847 053828 789003 918045 5 [place] 110cm 5 Fr catheter (759952) CHOICE PT Extra [place] 1 [id number] 004141 885189 811867 5 Support J 300cm Scientific guide wire (9560813M0) SABER 6.0 x 6 x Cardinal 1 [id number] 559133 905004 259332 5 150 balloon Health ([id number]) SMART 6 X 80 X Cardinal 1 [id number] 490661 922444 0 120 stent Health ([id number]) EXOSEAL 6Fr Cardinal 1 EX600 326091 254779 791360 10 (EX600) Health GLIDE WIRE Terumo 1 XS2945 135422 903297 581633 5 Super Stiff Angled 260cm (FA2037) Signature Audit [place] Stage Time Signature Unsigned Intra-Procedure 11/04/2017 Jaida 12:59:21 PM Counts RT(R) Signatures Monitor : Ruben Del Angel RT Signature : Date : Time : Monitor : Jaida Signature : Counts RT Date : Time : [id number] [place] [address]
[2017-11-04 09:03] VITALS: BP 139/58; Ht 175.3 cm; Wt 98.2 kg
[2017-11-04 09:34] LABS: BASOPHILS 0.4 % (0-2); EOSINOPHILS 1.2 % (0-7); HEMATOCRIT 36.5 % (36.0-48.0); HEMOGLOBIN 11.6 g/dL (12-16); IMMATURE GRANULOCYTES 0.4 % (0-5); LYMPHOCYTES 17.4 % (15-50); MCH 29.2 pg (26.0-34.0); MCHC 31.8 g/dL (31.0-37.0); MCV 91.9 fL (80.0-100.0); MEAN PLATELET VOLUME 10.7 fL (7.4-10.4); MONOCYTES 5.9 % (2-11); NEUTROPHILS 74.7 % (40-80); PLATELET COUNT 439 10x3/uL (130-400); RBC 3.97 10x6/uL (4.00-5.40); RDW 17.5 % (11.5-14.5); WBC 11.7 10x3/uL (4.8-10.8)
[2017-11-04 09:51] LABS: ANION GAP 11.7 mmol/L (8-16); CALCIUM 8.8 mg/dL (8.5-10.1); CARBON DIOXIDE 33.7 mmol/L (21.0-32.0); CREATININE - SERUM 1.4 mg/dL (0.6-1.3); POTASSIUM - SERUM 3.4 mmol/L (3.5-5.1)
[2017-11-04] MEDS ORDERED: PLAVIX75 MG PO (14:03)
== END 2017-11-04 17:30 | disposition home or self-care (01) ==
LOC: D.CATH 08:15
PROVIDERS: Internal Medicine Interventional Cardiology
DX: I70.238 Atherosclerosis of native arteries of right leg with ulceration of other part of lower leg (principal); L97.819 Non-pressure chronic ulcer of other part of right lower leg with unspecified severity; I34.8 Other nonrheumatic mitral valve disorders; Z01.812 Encounter for preprocedural laboratory examination